=== PATIENT | female | born 1930 | race Caucasian/White ===

== ENCOUNTER → 2016-10-27 | Outpatient (CLI) | payer MEDICARE, OTHER ==
--- NOTE | 2016-10-28 08:00 | US ---
EXAMINATION TYPE: US carotid duplex BILAT DATE OF EXAM: 10/27/2016 4:47 PM COMPARISON: NONE CLINICAL HISTORY: US. Bruit on left EXAM MEASUREMENTS: RIGHT: Peak Systolic Velocity (PSV) cm/sec ----- Right CCA: 128.6 ----- Right ICA: 141.5 ----- Right ECA: 115.7 ICA/CCA ratio: 1.1 RIGHT: End Diastole cm/sec ----- Right CCA: 10.7 ----- Right ICA: 25.2 ----- Right ECA: 0.0 LEFT: Peak Systolic Velocity (PSV) cm/sec ----- Left CCA: 99.5 ----- Left ICA: 115.7 ----- Left ECA: 99.5 ICA/CCA ratio: 1.2 LEFT: End Diastole cm/sec 50-69% by diameter stenosis, proximal right ICA. ----- Left CCA: 12.3 ----- Left ICA: 13.9 ----- Left ECA: 99.5 VERTEBRALS (direction of flow): Right Vertebral: Antegrade Left Vertebral: Retrograde, primarily with some antegrade flow. TECHNOLOGIST IMPRESSION: No significant stenosis seen, mildly elevated velocities throughout right s afshin. Bilateral plaque noted. 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 Criteria for Assigning % of Stenosis / Diameter reduction (Estimation based on the indirect measurements of the internal carotid artery velocities (ICA PSV). 1. Normal (no stenosis)=ICA PSV < 125 cm/s: ratio < 2.0: ICA EDV<40 cm/s. 2. Less than 50% stenosis=ICA PSV < 125 cm/s: ratio < 2.0: ICA EDV<40 cm/s. 3. 50 to 69% stenosis=ICA PSV of 125 to 230 cm/s: ration 2.0 ? 4.0: ICA EDV 40-100 cm/s. 4. Greater than 70% stenosis to near occlusion= ICA PSV > 230 cm/s: ratio > 4.0: ICA EDV > 100 cm/s. 5. Near occlusion= ICA PSV velocities may be low or undetectable: variable ratio and ICA EDV. 6. Total occlusion=unable to detect flow.
== END | disposition home or self-care (01) ==
LOC: RADUSWWP 16:13
PROVIDERS: ATTEND Family Medicine
DX: I65.21 Occlusion and stenosis of right carotid artery (principal); K21.9 Gastro-esophageal reflux disease without esophagitis; K44.9 Diaphragmatic hernia without obstruction or gangrene; E03.9 Hypothyroidism, unspecified; K58.9 Irritable bowel syndrome, unspecified; N31.9 Neuromuscular dysfunction of bladder, unspecified; G47.62 Sleep related leg cramps; N39.498 Other specified urinary incontinence; E55.9 Vitamin D deficiency, unspecified; R39.15 Urgency of urination; R09.89 Other specified symptoms and signs involving the circulatory and respiratory systems
CPT/HCPCS: 93880

== ENCOUNTER 2016-12-19 20:56 | Inpatient (IN) | payer MEDICARE, OTHER ==
[2016-12-19] MEDS ORDERED: SODIUM CHLORIDE 0.9% 500 ML IV STA (21:11)
[2016-12-19] MEDS ORDERED: ACETAMINOPHEN TAB 500 MG TAB PO STA (21:12)
--- NOTE | 2016-12-19 21:17 | ED ---
General Adult HPI - General Chief complaint: Shortness of Breath Stated complaint: Coughing/Weakness Time Seen by Provider: 12/19/16 21:00 Source: patient, family, RN notes reviewed Mode of arrival: ambulatory Limitations: no limitations - History of Present Illness Initial comments: This is an 85-year-old female presents emergency Department complaining of a cough with positive sputum production times one day. Patient states she is also had fever and chills since yesterday. Patient states she has slight difficulty breathing but not significant difficulty breathing. Patient states is a little tenderness in the anterior chest wall from coughing so hard. She denies any abdominal pain patient denies any vomiting or diarrhea. Patient denies any dysuria or hematuria but she does have some urinary frequency. Patient denies headache patient denies numbness or weakness. Patient denies any lightheadedness dizziness or syncopal episode. Patient does complain of generalized fatigue since yesterday. - Related Data Home Medications Medication Instructions Recorded Confirmed Ranitidine HCl [Zantac] 150 mg PO BID PRN 10/12/14 12/19/16 Valsartan [Diovan] 160 mg PO DAILY 10/12/14 12/19/16 Vitamin E (Dl,Tocopheryl Acet) 400 unit PO DAILY 10/12/14 12/19/16 [Vitamin E] Levothyroxine Sodium [Synthroid] 137 mcg PO DAILY 02/11/16 12/19/16 Acetaminophen-Codeine 300-30mg 1 tab PO HS PRN 05/04/16 12/19/16 [Tylenol w/codeine #3] Wheat Dextrin [Benefiber] 1 pack PO DAILY 05/04/16 12/19/16 Cranberry Extract [Cranberry] 1 each PO DAILY 07/16/16 12/19/16 Omeprazole [PriLOSEC] 20 mg PO DAILY 07/16/16 12/19/16 Previous Rx's Medication Instructions Recorded Gabapentin [Neurontin] 100 mg PO HS #0 02/15/16 traMADol HCl [Ultram] 50 mg PO TID #60 tab 02/15/16 diphenhydrAMINE HCL [Benadryl] 25 mg PO HS #1 tab 05/05/16 Allergies Allergy/AdvReac Type Severity Reaction Status Date / Time ibuprofen [From Motrin] Allergy Rash/Hives Verified 07/16/16 09:24 Review of Systems ROS Statement: Those systems with pertinent positive or pertinent negative responses have been documented in the HPI. ROS Other: All systems not noted in ROS Statement are negative. Past Medical History Past Medical History: Cancer, GERD/Reflux, Hypertension, Memory Impairment Additional Past Medical History / Comment(s): FORGETFUL AT TIMES. HIATAL HERNIA ,uterine cancer and skin cancer on nose/cheek. FREQ UTI'S History of Any Multi-Drug Resistant Organisms: None Reported Past Surgical History: Appendectomy, Back Surgery, Bladder Surgery, Cholecystectomy, Hysterectomy, Joint Replacement, Orthopedic Surgery Additional Past Surgical History / Comment(s): CATRACTS REMOVED BILAT, ARM SURGERY, CYST TAKEN OFF OF BACK, THYROID REMVOED, COMPLETE RIGHT HIP REPLACEMENT , COLONOSCOPY Past Anesthesia/Blood Transfusion Reactions: No Reported Reaction Additional Past Anesthesia/Blood Transfusion Reaction / Comment(s): clausterphobia Past Psychological History: No Psychological Hx Reported Smoking Status: Former smoker Past Alcohol Use History: None Reported Additional Past Alcohol Use History / Comment(s): started at age 16 1 pack every 2 days,quit 1978 Past Drug Use History: None Reported - Past Family History Father Family Medical History: Diabetes Mellitus Mother Family Medical History: Diabetes Mellitus, Hypertension Additional Family Medical History / Comment(s): HEART PROBLEMS General Exam - General Exam Comments Initial Comments: GENERAL: Patient is well-developed and well-nourished. Patient is nontoxic and well- hydrated and is in mild distress. ENT: Neck is soft and supple. No significant lymphadenopathy is noted. Oropharynx is clear. Moist mucous membranes. Neck has full range of motion without eliciting any pain. EYES: The sclera were anicteric and conjunctiva were pink and moist. Extraocular movements were intact and pupils were equal round and reactive to light. Eyelids were unremarkable. PULMONARY: Unlabored respirations. Good breath sounds bilaterally. No audible rales rhonchi or wheezing was noted. CARDIOVASCULAR: There is a regular rate and rhythm without any murmurs gallops or rubs. ABDOMEN: Soft and nontender with normal bowel sounds. No palpable organomegaly was noted. There is no palpable pulsatile mass. SKIN: Skin is clear with no lesions or rashes and otherwise unremarkable. NEUROLOGIC: Patient is alert and oriented x3. Cranial nerves II through XII are grossly intact. Motor and sensory are also intact. Normal speech, volume and content. Symmetrical smile. MUSCULOSKELETAL: Normal extremities with adequate strength and full range of motion. No lower extremity swelling or edema. No calf tenderness. LYMPHATICS: No significant lymphadenopathy is noted PSYCHIATRIC Normal psychiatric evaluation. Normal interpersonal interactions appears functionally intact in deals appropriately with others. No signs of depression. No signs of anxiety. Limitations: no limitations Course Vital Signs 12/19/16 12/19/16 21:01 22:38 Temperature 101.1 F H Pulse Rate 75 113 H Respiratory 17 20 Rate Blood Pressure 175/80 199/89 O2 Sat by Pulse 93 L 98 Oximetry Medical Decision Making - Medical Decision Making EKG shows normal sinus rhythm at 92 bpm VA interval is on a 52 QRS is 68 QT interval is 362 QTC is 447 per patient's EKG shows no ST segment elevation or depression or T-wave abdomen is noted. Chest x-ray showed no acute abdomen noted. Patient urinary tract infection start the patient on Levaquin I went back into reevaluate the patient she stated she felt way too weak to go home and she was still coughing. - Lab Data Result diagrams: 12/19/16 23:00 12/19/16 23:00 Lab Results 12/19/16 12/19/16 12/19/16 Range/Units 22:24 22:30 23:00 WBC 17.6 H (3.8-10.6) k/uL RBC 4.50 (3.80-5.40) m/uL Hgb 13.7 (11.4-16.0) gm/dL Hct 41.4 (34.0-46.0) % MCV 92.0 (80.0-100.0) fL MCH 30.5 (25.0-35.0) pg MCHC 33.1 (31.0-37.0) g/dL RDW 13.5 (11.5-15.5) % Plt Count 189 (150-450) k/uL Neutrophils % 92 % Lymphocytes % 2 % Monocytes % 4 % Eosinophils % 0 % Basophils % 0 % Neutrophils # 16.1 H (1.3-7.7) k/uL Lymphocytes # 0.4 L (1.0-4.8) k/uL Monocytes # 0.8 (0-1.0) k/uL Eosinophils # 0.0 (0-0.7) k/uL Basophils # 0.1 (0-0.2) k/uL PT (9.0-12.0) sec INR (<1.1) APTT (22.0-30.0) sec Sodium (137-145) mmol/L Potassium (3.5-5.1) mmol/L Chloride (98-107) mmol/L Carbon Dioxide (22-30) mmol/L Anion Gap mmol/L BUN (7-17) mg/dL Creatinine (0.52-1.04) mg/dL Est GFR (MDRD) Af Amer (>60 ml/min/1.73 sqM) Est GFR (MDRD) Non-Af (>60 ml/min/1.73 sqM) Glucose (74-99) mg/dL Plasma Lactic Acid [place] (0.7-2.0) mmol/L Calcium (8.4-10.2) mg/dL Magnesium (1.6-2.3) mg/dL Total Bilirubin (0.2-1.3) mg/dL AST (14-36) U/L ALT (9-52) U/L Alkaline Phosphatase (38-126) U/L Total Creatine Kinase (30-135) U/L CK-MB (CK-2) (0.0-2.4) ng/mL CK-MB (CK-2) Rel Index Troponin I (0.000-0.034) ng/mL Total Protein (6.3-8.2) g/dL Albumin (3.5-5.0) g/dL Urine Color Yellow Urine Appearance Turbid H (Clear) Urine pH 6.5 (5.0-8.0) Ur Specific [place] 1.015 (1.001-1.035) Urine Protein 2+ H (Negative) Urine Glucose (UA) Negative (Negative) Urine Ketones 1+ H (Negative) Urine Blood Moderate H (Negative) Urine Nitrate Positive H (Negative) Urine Bilirubin Negative (Negative) Urine Urobilinogen <2.0 (<2.0) mg/dL Ur Leukocyte Esterase Large H (Negative) Urine RBC >182 H (0-5) /hpf Urine WBC >182 H (0-5) /hpf Ur Squamous Epith Cells 5 H (0-4) /hpf Urine Bacteria Many H (None) /hpf Urine Mucus Rare H (None) /hpf Influenza Type A RNA Not Detected (Not Detectd) Influenza Type B (PCR) Not Detected (Not Detectd) 12/19/16 12/19/16 12/19/16 Range/Units 23:00 23:00 23:00 WBC (3.8-10.6) k/uL RBC (3.80-5.40) m/uL Hgb (11.4-16.0) gm/dL Hct (34.0-46.0) % MCV (80.0-100.0) fL MCH (25.0-35.0) pg MCHC (31.0-37.0) g/dL RDW (11.5-15.5) % Plt Count (150-450) k/uL Neutrophils % % Lymphocytes % % Monocytes % % Eosinophils % % Basophils % % Neutrophils # (1.3-7.7) k/uL Lymphocytes # (1.0-4.8) k/uL Monocytes # (0-1.0) k/uL Eosinophils # (0-0.7) k/uL Basophils # (0-0.2) k/uL PT 10.3 (9.0-12.0) sec INR 1.0 (<1.1) APTT 21.2 L (22.0-30.0) sec Sodium 139 (137-145) mmol/L Potassium 4.1 (3.5-5.1) mmol/L Chloride 104 (98-107) mmol/L Carbon Dioxide 26 (22-30) mmol/L Anion Gap 9 mmol/L BUN 15 (7-17) mg/dL Creatinine 0.84 (0.52-1.04) mg/dL Est GFR (MDRD) Af Amer >60 (>60 ml/min/1.73 sqM) Est GFR (MDRD) Non-Af >60 (>60 ml/min/1.73 sqM) Glucose 163 H (74-99) mg/dL Plasma Lactic Acid [place]ne (0.7-2.0) mmol/L Calcium 8.6 (8.4-10.2) mg/dL Magnesium 1.7 (1.6-2.3) mg/dL Total Bilirubin 1.5 H (0.2-1.3) mg/dL AST 34 (14-36) U/L ALT 33 (9-52) U/L Alkaline Phosphatase 81 (38-126) U/L Total Creatine Kinase 31 (30-135) U/L CK-MB (CK-2) 0.5 (0.0-2.4) ng/mL CK-MB (CK-2) Rel Index 1.6 Troponin I <0.012 (0.000-0.034) ng/mL Total Protein 6.9 (6.3-8.2) g/dL Albumin 3.7 (3.5-5.0) g/dL Urine Color Urine Appearance (Clear) Urine pH (5.0-8.0) Ur Specific [place] (1.001-1.035) Urine Protein (Negative) Urine Glucose (UA) (Negative) Urine Ketones (Negative) Urine Blood (Negative) Urine Nitrate (Negative) Urine Bilirubin (Negative) Urine Urobilinogen (<2.0) mg/dL Ur Leukocyte Esterase (Negative) Urine RBC (0-5) /hpf Urine WBC (0-5) /hpf Ur Squamous Epith Cells (0-4) /hpf Urine Bacteria (None) /hpf Urine Mucus (None) /hpf Influenza Type A RNA (Not Detectd) Influenza Type B (PCR) (Not Detectd) 12/19/16 Range/Units 23:00 WBC (3.8-10.6) k/uL RBC (3.80-5.40) m/uL Hgb (11.4-16.0) gm/dL Hct (34.0-46.0) % MCV (80.0-100.0) fL MCH (25.0-35.0) pg MCHC (31.0-37.0) g/dL RDW (11.5-15.5) % Plt Count (150-450) k/uL Neutrophils % % Lymphocytes % % Monocytes % % Eosinophils % % Basophils % % Neutrophils # (1.3-7.7) k/uL Lymphocytes # (1.0-4.8) k/uL Monocytes # (0-1.0) k/uL Eosinophils # (0-0.7) k/uL Basophils # (0-0.2) k/uL PT (9.0-12.0) sec INR (<1.1) APTT (22.0-30.0) sec Sodium (137-145) mmol/L Potassium (3.5-5.1) mmol/L Chloride (98-107) mmol/L Carbon Dioxide (22-30) mmol/L Anion Gap mmol/L BUN (7-17) mg/dL Creatinine (0.52-1.04) mg/dL Est GFR (MDRD) Af Amer (>60 ml/min/1.73 sqM) Est GFR (MDRD) Non-Af (>60 ml/min/1.73 sqM) Glucose (74-99) mg/dL Plasma Lactic Acid Bl[place]ne 0.9 (0.7-2.0) mmol/L Calcium (8.4-10.2) mg/dL Magnesium (1.6-2.3) mg/dL Total Bilirubin (0.2-1.3) mg/dL AST (14-36) U/L ALT (9-52) U/L Alkaline Phosphatase (38-126) U/L Total Creatine Kinase (30-135) U/L CK-MB (CK-2) (0.0-2.4) ng/mL CK-MB (CK-2) Rel Index Troponin I (0.000-0.034) ng/mL Total Protein (6.3-8.2) g/dL Albumin (3.5-5.0) g/dL Urine Color Urine Appearance (Clear) Urine pH (5.0-8.0) Ur Specific [place] (1.001-1.035) Urine Protein (Negative) Urine Glucose (UA) (Negative) Urine Ketones (Negative) Urine Blood (Negative) Urine Nitrate (Negative) Urine Bilirubin (Negative) Urine Urobilinogen (<2.0) mg/dL Ur Leukocyte Esterase (Negative) Urine RBC (0-5) /hpf Urine WBC (0-5) /hpf Ur Squamous Epith Cells (0-4) /hpf Urine Bacteria (None) /hpf Urine Mucus (None) /hpf Influenza Type A RNA (Not Detectd) Influenza Type B (PCR) (Not Detectd) Disposition Clinical Impression: Urinary tract infection, Dyspnea, Weakness Disposition: ADMITTED IP TO THIS HOSP Referrals: Sri Sloan MD [Primary Care Provider] - 1-2 days Time of Disposition: 00:00
[2016-12-19 23:09] LABS: Appearance,Urine Turbid (Clear); Bacteria,Urine Many /hpf; Bilirubin,Urine Negative (Negative); Glucose,Urine (UA) Negative (Negative); Ketones,Urine 1+ (Negative); Leukocyte Esterase,Urine Large (Negative); Mucus,Urine Rare /hpf; Nitrite,Urine Positive (Negative); PH, Urine 6.5 (5.0-8.0); Particle Count 66276; Protein,Urine 2+ (Negative); RBC,Urine >182 /hpf (0-5); Specific Gravity,Urine 1.015 (1.001-1.035); Squamous Epithelial Cell,Urine 5 /hpf (0-4); UA Billing (MACRO vs. MICRO) MICRO; Urobilinogen,Urine <2.0 mg/dL (<2.0); WBC,Urine >182 /hpf (0-5)
[2016-12-19 23:15] LABS: Basophils # (A) 0.1 k/uL (0-0.2); Basophils % (A) 0 %; CH 30.8; CHCM 33.7; Eosinophils % (A) 0 %; HCT 41.4 % (34.0-46.0); HDW 2.39; HGB 13.7 gm/dL (11.4-16.0); Luc # (Auto) 0.21; Luc % (Auto) 1; Lymphocytes # (A) 0.4 k/uL (1.0-4.8); Lymphocytes % (A) 2 %; MCH 30.5 pg (25.0-35.0); MCHC 33.1 g/dL (31.0-37.0); Monocytes # (A) 0.8 k/uL (0-1.0); Monocytes % (A) 4 %; Neutrophils # (A) 16.1 k/uL (1.3-7.7); Neutrophils % (A) 92 %; RDW 13.5 % (11.5-15.5); WBC 17.6 k/uL (3.8-10.6); WBC (Perox) 17.81
[2016-12-19 23:25] LABS: ALT 33 U/L (9-52); AST 34 U/L (14-36); Alkaline Phosphatase 81 U/L (38-126); Anion Gap 9 mmol/L; Blood Urea Nitrogen 15 mg/dL (7-17); Calcium 8.6 mg/dL (8.4-10.2); Carbon Dioxide 26 mmol/L (22-30); Chloride 104 mmol/L (98-107); Glucose 163 mg/dL (74-99); Magnesium 1.7 mg/dL (1.6-2.3); Non-African American GFR(MDRD) >60 (>60 ml/min/1.73 sqM); Potassium 4.1 mmol/L (3.5-5.1); Sodium 139 mmol/L (137-145); Total Bilirubin 1.5 mg/dL (0.2-1.3); Total Protein 6.9 g/dL (6.3-8.2)
[2016-12-19 23:32] LABS: Prothrombin Time 10.3 sec (9.0-12.0)
[2016-12-19 23:39] LABS: Creatine Kinase 31 U/L (30-135)
--- NOTE | 2016-12-19 23:46 | XR ---
EXAM: XR Chest, 2 Views. CLINICAL HISTORY: Reason: difficulty breathing TECHNIQUE: Frontal and lateral views of the chest. COMPARISON: 02/13/16. FINDINGS: Lungs: No consolidation. Emphysematous changes. Pleural space: Unremarkable. No pneumothorax. Heart: Stable cardiomediastinal silhouette. Mediastinum: See above. Bones/joints: Stable. Right humeral postsurgical changes noted. IMPRESSION: No evidence of acute cardiopulmonary disease.
[2016-12-19] MEDS ORDERED: LEVOFLOXACIN 750MG-D5W PMX 750 MG in DEXTROSE/WATER 1 150ML.BAG IVPB STA (23:50)
[2016-12-19 23:52] LABS: Creatine Kinase MB 0.5 ng/mL (0.0-2.4); Troponin I <0.012 ng/mL (0.000-0.034)
[2016-12-19 23:57] LABS: Partial Thromboplastin Time 21.2 sec (22.0-30.0)
[2016-12-20] MEDS ORDERED: SODIUM CHLORIDE 0.9% 1,000 ML IV ONE
[2016-12-20] MEDS ORDERED: ACETAMINOPHEN TAB 325 MG TAB PO PRN ×2 (00:57→09:15)
[2016-12-20 01:47] VITALS: BMI 29.0
[2016-12-20] MEDS: SODIUM CHLORIDE 0.9% 1,000 ML IV SCH ×2 (07:49→15:56)
[2016-12-20] MEDS: VALSARTAN 160 MG TAB PO SCH (07:55)
[2016-12-20] MEDS ORDERED: traMADol 50 MG TAB PO SCH (09:00)
[2016-12-20] MEDS ORDERED: traMADol 50 MG TAB PO PRN (09:00)
[2016-12-20] MEDS ORDERED: Acetaminophen-Codeine 300-30mg TAB PO PRN (09:19)
[2016-12-20] MEDS ORDERED: FAMOTIDINE 20 MG TAB PO PRN (09:19)
--- NOTE | 2016-12-20 09:37 | P.HPIM ---
History of Present Illness H&P Date: 12/20/16 Chief Complaint: Shortness of breath 85-year-old female presented on the day of admission to the emergency room with a chief complaint of developing frequent cough coughing up yellowish colored secretions with shortness of breath with fever chills. Patient stated the symptoms have been ongoing for the past several days. stated that she is coughing so frequently that it caused chest tenderness from the frequent cough. Patient denied any nausea vomiting. Denied any burning on urination or hematuria. Patient does state that she has chronic urinary incontinence. Patient states that she has been feeling generalized fatigue over the past several days. she lives alone is fairly active. But over the last several days has felt decreased endurance and inability to participate in ADLs. came into the emergency room was noted to have a fever temp was 101.1 blood pressure was elevated 199/89 with a white count of 17.6. Patient's urine was positive to suggest a UTI patient was started in the emergency room on IV Levaquin. The chest x-ray obtained in the emergency room showed no acute process. states that she has not had any recent hospitalization or recent illness . Patient is noted to have a frequent harsh productive cough coughing up yellowish secretions with audible bilateral wheezing noted the influenza A and B was not detected Reviewing computerized record indicates that in June 2016 the patient did undergo an EGD by Dr. Hercules. Patient was being evaluated for intermittent dysphagia to solids ongoing for the past 2 years. The EGD report indicated a small hiatal hernia with mild cricopharyngeal dysfunction with no evidence of zenker diverticulum Review of Systems Essentially unremarkable except as mentioned in the present illness Past Medical History Past Medical History: Cancer, GERD/Reflux, Hypertension, Memory Impairment Additional Past Medical History / Comment(s): FORGETFUL AT TIMES. HIATAL HERNIA ,uterine cancer and skin cancer on nose/cheek. FREQ UTI'S History of Any Multi-Drug Resistant Organisms: None Reported Past Surgical History: Appendectomy, Back Surgery, Bladder Surgery, Cholecystectomy, Hysterectomy, Joint Replacement, Orthopedic Surgery Additional Past Surgical History / Comment(s): CATRACTS REMOVED BILAT, ARM SURGERY, CYST TAKEN OFF OF BACK, THYROID REMVOED, COMPLETE RIGHT HIP REPLACEMENT , COLONOSCOPY Past Anesthesia/Blood Transfusion Reactions: No Reported Reaction Additional Past Anesthesia/Blood Transfusion Reaction / Comment(s): clausterphobia Past Psychological History: No Psychological Hx Reported Smoking Status: Former smoker Past Alcohol Use History: None Reported Additional Past Alcohol Use History / Comment(s): started at age 16 1 pack every 2 days,quit 1978 Past Drug Use History: None Reported - Past Family History Father Family Medical History: Diabetes Mellitus Mother Family Medical History: Diabetes Mellitus, Hypertension Additional Family Medical History / Comment(s): HEART PROBLEMS Medications and Allergies Home Medications Medication Instructions Recorded Confirmed Type Ranitidine HCl [Zantac] 150 mg PO BID PRN 10/12/14 12/19/16 History Valsartan [Diovan] 160 mg PO DAILY 10/12/14 12/19/16 History Vitamin E (Dl,Tocopheryl Acet) 400 unit PO DAILY 10/12/14 12/19/16 History [Vitamin E] Levothyroxine Sodium [Synthroid] 137 mcg PO DAILY 02/11/16 12/19/16 History Acetaminophen-Codeine 300-30mg 1 tab PO HS PRN 05/04/16 12/19/16 History [Tylenol w/codeine #3] Wheat Dextrin [Benefiber] 1 pack PO DAILY 05/04/16 12/19/16 History Cranberry Extract [Cranberry] 1 each PO DAILY 07/16/16 12/19/16 History Omeprazole [PriLOSEC] 20 mg PO DAILY 07/16/16 12/19/16 History Allergies Allergy/AdvReac Type Severity Reaction Status Date / Time ibuprofen [From Motrin] Allergy Rash/Hives Verified 07/16/16 09:24 Physical Exam Vitals: Vital Signs Temp Pulse Pulse Resp BP BP Pulse Ox 12/20/16 07:31 92 18 12/20/16 07:00 99.2 F 80 16 145/93 99 12/20/16 01:54 160/70 12/20/16 01:39 98 F 92 18 172/74 97 12/20/16 00:14 100.8 F H 92 18 155/70 96 Intake and Output 12/19/16 12/20/16 12/20/16 22:59 06:59 14:59 Other: Voiding Method Toilet Toilet Diaper Diaper Incontinent Incontinent # Voids 1 Weight 74.389 kg GENERAL APPEARANCE: 85-year-old female patient is alert, oriented, in no acute distress. Sitting up on the edge of the bed a frequent productive cough coughing up yellowish secretions audibly wheezing VITAL SIGNS: Reviewed HEENT: Head is normocephalic and atraumatic. Pupils are equal and reactive. The nares are patent. Oropharynx is clear without lesions. NECK: Supple without lymphadenopathy. Traches midline. HEART: S1, S2. Regular rate and rhythm. No murmur noted denying chest pain LUNGS: Posterior diminished at bases with coarse rhonchi throughout with bilateral wheezing noted a frequent cough noted sats on 2 L documented 99% ABDOMEN: Soft, nontender, nondistended with good bowel sounds. No peritoneal signs. No palpable organomegaly or masses. Incontinent a urine no stool EXTREMITIES: Normal skin color and turgor. No cyanosis, rash, ulceration, clubbing or edema. Radial pedal pulses are 2/4 bilaterally. NEUROLOGICAL: No focal deficits. Strength and sensation are grossly intact. Results CBC & Chem 7: 12/19/16 23:00 12/19/16 23:00 Thrombosis Risk Factor Assmnt - Choose All That Apply Each Risk Factor Represents 3 Points: Positive Factor V Leiden Thrombosis Risk Factor Assessment Total Risk Factor Score: 3 Thrombosis Risk Factor Assessment Level: Moderate Risk Assessment and Plan Plan: Impression Present on admission shortness of breath frequent cough febrile with leukocytosis likely due to upper respiratory infection Present on admission UTI History of intermittent dysphagia with an EGD done in June 2016 showing mild cricopharyngeal dysfunction with small hiatal hernia History of esophageal reflux disease History of frequent UTIs Chronic urinary incontinence Essential Hypertension Remote history of nicotine dependency Plan Obtain sputum sent for culture and sensitivity Obtain urine sent for culture and sensitivity Resume home meds as appropriate Start respiratory treatments as ordered Aspiration precautions Repeat labs in the morning Continue IV Levaquin as ordered DVT and GI prophylaxis Further recommendations pending pulmonary consultation Swallow eval in the morning rule out dysphagia The above dictated assessment and findings were discussed with dr negron . Impression and the plan of care have been dictated as directed. Steffanie Aviles nurse practitioner acting as a scribe for dr negron
[2016-12-20 09:46] LABS: Appearance,Urine Cloudy (Clear); Bilirubin,Urine Negative (Negative); Glucose,Urine (UA) Negative (Negative); Ketones,Urine Negative (Negative); Leukocyte Esterase,Urine Large (Negative); Nitrite,Urine Negative (Negative); PH, Urine 6.5 (5.0-8.0); Particle Count 2674; Protein,Urine 1+ (Negative); RBC,Urine 8 /hpf (0-5); Specific Gravity,Urine 1.007 (1.001-1.035); Squamous Epithelial Cell,Urine 1 /hpf (0-4); UA Billing (MACRO vs. MICRO) MICRO; Urobilinogen,Urine <2.0 mg/dL (<2.0); WBC,Urine >182 /hpf (0-5)
[2016-12-20] MEDS: IPRATROPIUM-ALBUTEROL 3 ML NEB INHALATION SCH ×5 (11:43→22:26)
[2016-12-20] MEDS: methylPREDNISolone SOD SUCCI 40 MG/ML 1 ML VIAL IV SCH ×2 (17:28→23:15)
[2016-12-20 20:18] LABS: Glucose,Whole Blood 243 mg/dL (75-99)
[2016-12-20] MEDS: GABAPENTIN 100 MG CAP PO SCH (21:29)
[2016-12-20] MEDS: BUDESONIDE 0.25 MG/2 ML NEBU INHALATION SCH (21:30)
[2016-12-20] MEDS: INSULIN LISPRO (humaLOG) 300 UNIT/3 ML VIAL SQ SCH (21:31)
[2016-12-20] MEDS: diphenhydrAMINE 25 MG CAP PO SCH (21:31)
[2016-12-20] MEDS ORDERED: hydrALAZINE HCL 20 MG/ML 1 ML VIAL IVP PRN (21:57)
--- NOTE | 2016-12-20 22:11 | P.CNPUL ---
History of Present Illness Consult date: 12/20/16 Reason for consult: dyspnea History of present illness: This is a pleasant 85-year-old female patient, no history of smoking and denies having any previous history of chronic lung disorder, presented to the hospital because of increased cough, chest congestion, shortness of breath and increased wheezing. The patient was having some outpatient fever or chills in addition. Apparently her symptoms of been going on for several days and the patient developed some's chest wall soreness and tenderness due to persistent coughing. No change in mental status. No nausea. No vomiting. No abdominal pain. Denied having any dysuria fakes urgency. Chest x-ray showed no acute pulmonary infiltrates or pneumonias. Urine analysis was abnormal and consistent with an underlying urine checked infection. The patient was started on broad-spectrum antibiotics including Levaquin. Influenza screen including influenza A and B were negative. No other complaints otherwise for now. Review of Systems Further review of system was done and the positive findings are almost above history of present illness Past Medical History Past Medical History: Cancer, GERD/Reflux, Hypertension, Memory Impairment Additional Past Medical History / Comment(s): Uterine cancer, skin cancer, hypertension, dementia with memory impairment, hiatal hernia, hypertension, frequent urine checked infections, GERD, cataracts, History of Any Multi-Drug Resistant Organisms: None Reported Past Surgical History: Appendectomy, Back Surgery, Bladder Surgery, Cholecystectomy, Hysterectomy, Joint Replacement, Orthopedic Surgery Additional Past Surgical History / Comment(s): Bilateral cataract removal, resection of a cyst from the back, thyroidectomy, right hip arthroplasty, colonoscopy, hysterectomy, cholecystectomy, bladder suspension surgery, back surgery, Past Anesthesia/Blood Transfusion Reactions: No Reported Reaction Additional Past Anesthesia/Blood Transfusion Reaction / Comment(s): clausterphobia Past Psychological History: No Psychological Hx Reported Smoking Status: Former smoker Past Alcohol Use History: None Reported Additional Past Alcohol Use History / Comment(s): started at age 16 1 pack every 2 days,quit 1978 Past Drug Use History: None Reported - Past Family History Father Family Medical History: Diabetes Mellitus Mother Family Medical History: Diabetes Mellitus, Hypertension Additional Family Medical History / Comment(s): HEART PROBLEMS Medications and Allergies Home Medications Medication Instructions Recorded Confirmed Type Ranitidine HCl [Zantac] 150 mg PO BID PRN 10/12/14 12/20/16 History Valsartan [Diovan] 160 mg PO DAILY 10/12/14 12/20/16 History Wheat Dextrin [Benefiber] 1 pack PO DAILY 05/04/16 12/20/16 History Cranberry Extract [Cranberry] 1 tab PO DAILY 07/16/16 12/20/16 History Cholecalciferol [Vitamin D3] 2,000 unit PO DAILY 12/20/16 12/20/16 History Gabapentin [Neurontin] 300 mg PO DAILY 12/20/16 12/20/16 History Levothyroxine Sodium [Synthroid] 150 mcg PO DAILY 12/20/16 12/20/16 History Methocarbamol [Robaxin] 500 mg PO BID 12/20/16 12/20/16 History Omeprazole 40 mg PO DAILY 12/20/16 12/20/16 History Allergies Allergy/AdvReac Type Severity Reaction Status Date / Time ibuprofen [From Motrin] Allergy Rash/Hives Verified 12/20/16 14:03 Physical Exam Vitals: Vital Signs Temp Pulse Pulse Resp BP BP Pulse Ox 12/20/16 21:46 82 12/20/16 21:31 82 12/20/16 16:45 88 12/20/16 16:31 88 12/20/16 16:00 92 18 12/20/16 15:00 98.5 F 77 20 158/72 99 12/20/16 11:55 92 12/20/16 11:43 88 12/20/16 11:01 99.1 F 12/20/16 07:31 92 18 12/20/16 07:00 99.2 F 80 16 145/93 99 12/20/16 01:54 160/70 12/20/16 01:39 98 F 92 18 172/74 97 12/20/16 00:14 100.8 F H 92 18 155/70 96 Intake and Output 12/20/16 12/20/16 12/20/16 06:59 14:59 22:59 Intake Total 360 Output Total 50 Balance 310 Intake: Oral 360 Output: Post Void Residual 50 Other: Voiding Method Toilet Toilet Toilet Diaper Diaper Diaper Incontinent Incontinent Incontinent # Voids 1 7 Weight 74.389 kg Head exam was generally normal. There was no scleral icterus or corneal arcus. Mucous membranes were moist.Neck was supple and without jugular venous distension, thyromegaly, or carotid bruits. Carotids were easily palpable bilaterally. There was no adenopathy. Lung sounds are diminished and there is diffuse extremity wheezes throughout the lung lackey bilaterally.Cardiac exam revealed the PMI to be normally situated and sized. The rhythm was regular and no extrasystoles were noted during several minutes of auscultation. The first and second heart sounds were normal and physiologic splitting of the second heart sound was noted. There were no murmurs, rubs, clicks, or gallops.Abdominal exam revealed normal bowel sounds. The abdomen was soft, non- tender, and without masses, organomegaly, or appreciable enlargement of the abdominal aorta.Examination of the extremities revealed easily palpable radial, femoral and pedal pulses. There was no cyanosis, clubbing or edema. Results - Laboratory Findings CBC and BMP: 12/19/16 23:00 12/19/16 23:00 PT/INR, D-dimer PT 10.3 sec (9.0-12.0) 12/19/16 23:00 INR 1.0 (<1.1) 12/19/16 23:00 Abnormal lab findings: Abnormal Labs 12/20/16 12/20/16 09:30 20:14 POC Glucose (mg/dL) 243 H Urine Appearance Cloudy H Urine Protein 1+ H Urine Blood Small H Ur Leukocyte Esterase Large H Urine RBC 8 H Urine WBC >182 H - Diagnostic Findings Chest x-ray: image reviewed Assessment and Plan Plan: Impression 1 acute bronchitis with secondary shortness of breath, bronchospasm and wheeze, chest x-ray remains free of any pulmonary infiltrates 2 acute leukocytosis 3 acute urinary tract infection 4 recurrent UTIs 5 intermittent dysphagia with a previous EGD showing some mild cricopharyngeal dysfunction 6 hiatal hernia small 7 GERD 8 hypothyroidism currently on thyroid hormone replacement 9 hypertension 10 chronic urinary incontinence with frequent UTIs 11 hypertension 12 dementia with some memory impairment 13. Uterine cancer with a previous hysterectomy. 14 skin cancer resected. Plan Continue DuoNeb nebulized treatments around the clock. Add IV Solu Medrol at a lower dose of 40 mg IV push every 6 hours. Cover the patient empirically with Levaquin 750 g every 24 hours. Obtain sputum Gram stain and culture. Obtain urine cultures. Monitor the progress and make further adjustments over the next 24 hours. The patient has checked negative for influenza A and B. The chest x-ray shows no evidence of any acute cardio pulmonary processes would be worthwhile to repeat chest x-ray the patient continues to have difficulty breathing and does not show any signs of recovery within the next few days.
[2016-12-20] MEDS ORDERED: IPRATROPIUM-ALBUTEROL 3 ML NEB INHALATION PRN (22:26)
[2016-12-20] MEDS ORDERED: LEVOFLOXACIN 750MG-D5W PMX 750 MG in DEXTROSE/WATER 1 150ML.BAG IVPB SCH (23:00)
[2016-12-21] MEDS: methylPREDNISolone SOD SUCCI 40 MG/ML 1 ML VIAL IV SCH ×2 (05:47→11:57)
[2016-12-21] MEDS: LEVOTHYROXINE 137 MCG TAB PO SCH (05:49)
[2016-12-21 08:03] LABS: Basophils % (A) 0 %; CH 30.7; CHCM 32.9; Eosinophils % (A) 0 %; HCT 36.7 % (34.0-46.0); HDW 2.36; HGB 11.9 gm/dL (11.4-16.0); Luc # (Auto) 0.04; Luc % (Auto) 1; Lymphocytes # (A) 0.7 k/uL (1.0-4.8); Lymphocytes % (A) 9 %; MCH 30.3 pg (25.0-35.0); MCHC 32.4 g/dL (31.0-37.0); MCV 93.6 fL (80.0-100.0); Mean Platelet Volume 6.2; Monocytes # (A) 0.2 k/uL (0-1.0); Monocytes % (A) 2 %; Neutrophils # (A) 6.8 k/uL (1.3-7.7); Neutrophils % (A) 89 %; RBC 3.92 m/uL (3.80-5.40); RDW 13.7 % (11.5-15.5); WBC 7.7 k/uL (3.8-10.6); WBC (Perox) 8.63
[2016-12-21 08:05] LABS: Glucose,Whole Blood 138 mg/dL (75-99)
[2016-12-21] MEDS: CALCIUM POLYCARBOPHIL 625 MG TAB PO SCH (08:06)
[2016-12-21] MEDS: PANTOPRAZOLE 40 MG TABLET PO SCH (08:06)
[2016-12-21] MEDS: INSULIN LISPRO (humaLOG) 300 UNIT/3 ML VIAL SQ SCH ×4 (08:06→21:18)
[2016-12-21] MEDS: VALSARTAN 160 MG TAB PO SCH (08:07)
[2016-12-21 08:28] LABS: ALT 32 U/L (9-52); AST 23 U/L (14-36); Alkaline Phosphatase 69 U/L (38-126); Anion Gap 10 mmol/L; Blood Urea Nitrogen 14 mg/dL (7-17); Calcium 8.6 mg/dL (8.4-10.2); Carbon Dioxide 22 mmol/L (22-30); Chloride 109 mmol/L (98-107); Glucose 153 mg/dL (74-99); Non-African American GFR(MDRD) 59 (>60 ml/min/1.73 sqM); Potassium 4.1 mmol/L (3.5-5.1); Sodium 141 mmol/L (137-145); Total Bilirubin 0.5 mg/dL (0.2-1.3); Total Protein 6.1 g/dL (6.3-8.2)
[2016-12-21] MEDS ORDERED: CRANBERRY EXTRACT PO SCH (09:00)
[2016-12-21] MEDS: IPRATROPIUM-ALBUTEROL 3 ML NEB INHALATION SCH ×4 (09:24→19:09)
[2016-12-21] MEDS: BUDESONIDE 0.25 MG/2 ML NEBU INHALATION SCH ×2 (09:24→19:08)
[2016-12-21 10:21] LABS: Hemoglobin A1C 5.6 % (4.2-6.1)
[2016-12-21] MEDS: SODIUM CHLORIDE 0.9% 1,000 ML IV SCH (11:31)
[2016-12-21] MEDS: VITAMIN E (DL,TOCOPHERYL ACET) 400 UNIT CAP PO SCH (11:57)
--- NOTE | 2016-12-21 11:58 | P.PN ---
Subjective Patient is doing fairly well today. Her shortness of breath is improving. No significant lower extremity edema. Objective - Vital Signs Vital signs: Vital Signs Temp 98.9 F 12/21/16 07:00 Pulse 88 12/21/16 09:35 Resp 17 12/21/16 07:00 BP 158/70 12/21/16 09:10 Pulse Ox 96 12/21/16 07:00 Intake & Output 12/20/16 12/21/16 12/21/16 18:59 06:59 18:59 Intake Total 360 Output Total 50 Balance 310 Intake: Oral 360 Output: Post Void Residual 50 Other: Voiding Method Toilet Toilet Toilet Diaper Diaper Diaper Incontinent Incontinent Incontinent # Voids 7 2 - Exam General: The patient is awake and alert, in no distress Eye: there is normal conjunctiva bilaterally. Neck: The neck is supple, there is no JVD. Cardiovascular: Normal S1-S2, no S3-S4, no murmurs. Respiratory: Lungs clear to auscultation bilaterally Gastrointestinal: Abdomen is soft, nontender Musculoskeletal: There is no pedal edema. Neurological:. Speech is normal. Skin: Skin is warm and dry - Labs CBC & Chem 7: 12/21/16 07:24 12/21/16 07:24 Labs: Abnormal Lab Results - Last 24 Hours (Table) 12/20/16 12/21/16 12/21/16 Range/Units 20:14 07:24 07:24 Lymphocytes # 0.7 L (1.0-4.8) k/uL Chloride 109 H (98-107) mmol/L Glucose 153 H (74-99) mg/dL POC Glucose (mg/dL) 243 H (75-99) mg/dL Total Protein 6.1 L (6.3-8.2) g/dL Albumin 3.3 L (3.5-5.0) g/dL 12/21/16 Range/Units 07:51 Lymphocytes # (1.0-4.8) k/uL Chloride (98-107) mmol/L Glucose (74-99) mg/dL POC Glucose (mg/dL) 138 H (75-99) mg/dL Total Protein (6.3-8.2) g/dL Albumin (3.5-5.0) g/dL Microbiology - Last 24 Hours (Table) 12/20/16 09:30 Urine Culture - Final Urine,Voided 12/20/16 16:45 Gram Stain - Preliminary Sputum Sputum Culture - Preliminary Assessment and Plan Plan: Impression - Acute bacterial bronchitis with no evidence of pneumonia on chest x-ray - Present on admission shortness of breath frequent cough febrile with leukocytosis likely due to upper respiratory infection - Present on admission UTI: Covered with IV Levaquin - History of intermittent dysphagia with an EGD done in June 2016 showing mild cricopharyngeal dysfunction with small hiatal hernia - History of esophageal reflux disease - History of frequent UTIs: Awaiting PT/OT evaluation - Chronic urinary incontinence - Essential Hypertension: Blood pressure well-controlled - Remote history of nicotine dependency Plan Awaiting urine and sputum cultures to finalize Aspiration precautions Repeat labs in the morning Continue IV Levaquin as ordered DVT and GI prophylaxis Further recommendations pending pulmonary consultation appreciate
[2016-12-21 12:02] LABS: Glucose,Whole Blood 167 mg/dL (75-99)
[2016-12-21] MEDS: amLODIPine 2.5 MG TAB PO SCH (13:04)
--- NOTE | 2016-12-21 15:40 | P.PN ---
Subjective Principal diagnosis: Acute bronchitis and reactive bronchospasm This is a pleasant 85-year-old female patient, no history of smoking and denies having any previous history of chronic lung disorder, presented to the hospital because of increased cough, chest congestion, shortness of breath and increased wheezing. The patient was having some outpatient fever or chills in addition. Apparently her symptoms of been going on for several days and the patient developed some's chest wall soreness and tenderness due to persistent coughing. No change in mental status. No nausea. No vomiting. No abdominal pain. Denied having any dysuria fakes urgency. Chest x-ray showed no acute pulmonary infiltrates or pneumonias. Urine analysis was abnormal and consistent with an underlying urine checked infection. The patient was started on broad-spectrum antibiotics including Levaquin. Influenza screen including influenza A and B were negative. No other complaints otherwise for now. Patient was seen today on 12/21/2016, feeling better, breathing easier, she has occasional cough and occasional wheezing. Physical examination revealed clear breath sound bilaterally, hence I felt the patient could be discharged home today or possibly in a.m. Labs including CBC and basic metabolic profile are all normal. Objective - Vital Signs Vital signs: Vital Signs Temp 98.9 F 12/21/16 07:00 Pulse 88 12/21/16 09:35 Resp 17 12/21/16 07:00 BP 158/70 12/21/16 09:10 Pulse Ox 96 12/21/16 07:00 Intake & Output 12/20/16 12/21/16 12/21/16 18:59 06:59 18:59 Intake Total 360 375 Output Total 50 Balance 310 375 Intake: IV 375 Sodium Chloride 0.9% 1, 375 000 ml @ 75 mls/hr IV . [id number] [facility] Rx#:[id number] Oral 360 Output: Post Void Residual 50 Other: Voiding Method Toilet Toilet Toilet Diaper Diaper Diaper Incontinent Incontinent Incontinent # Voids 7 2 5 - Exam Physical Exam revealed an 85-year-old in no distress. HEENT:[Neck is supple.] [No neck masses.] [No thyromegaly.] [No JVD.] Chest: [Clear throughout, no crackles, no rhonchi, no wheezes.] Cardiac Exam: [Normal S1 and S2, no S3 gallop, 2/6 systolic murmur throughout the precordium] Abdomen: [Soft, nontender, no megaly, no rebound, no guarding, normal bowel sounds.] Extremities: [No clubbing, no edema, no cyanosis.] Neurological Exam: [No focal neurologic deficit.] - Labs CBC & Chem 7: 12/21/16 07:24 12/21/16 07:24 Labs: Abnormal Lab Results - Last 24 Hours (Table) 12/20/16 12/21/16 12/21/16 Range/Units 20:14 07:24 07:24 Lymphocytes # 0.7 L (1.0-4.8) k/uL Chloride 109 H (98-107) mmol/L Glucose 153 H (74-99) mg/dL POC Glucose (mg/dL) 243 H (75-99) mg/dL Total Protein 6.1 L (6.3-8.2) g/dL Albumin 3.3 L (3.5-5.0) g/dL 12/21/16 12/21/16 Range/Units 07:51 11:47 Lymphocytes # (1.0-4.8) k/uL Chloride (98-107) mmol/L Glucose (74-99) mg/dL POC Glucose (mg/dL) 138 H 167 H (75-99) mg/dL Total Protein (6.3-8.2) g/dL Albumin (3.5-5.0) g/dL Microbiology - Last 24 Hours (Table) 12/20/16 09:30 Urine Culture - Final Urine,Voided 12/20/16 16:45 Gram Stain - Preliminary Sputum Sputum Culture - Preliminary Assessment and Plan Plan: 1 acute bronchitis with secondary shortness of breath, bronchospasm and wheeze, chest x-ray remains free of any pulmonary infiltrates 2 acute leukocytosis 3 acute urinary tract infection 4 recurrent UTIs 5 intermittent dysphagia with a previous EGD showing some mild cricopharyngeal dysfunction 6 hiatal hernia small 7 GERD 8 hypothyroidism currently on thyroid hormone replacement 9 hypertension 10 chronic urinary incontinence with frequent UTIs 11 hypertension 12 dementia with some memory impairment 13. Uterine cancer with a previous hysterectomy. 14 skin cancer resected. Continue present treatment plan, consider switching patient tomorrow to prednisone burst and taper, discharge planning is in progress. Follow-up on outpatient basis. Time with Patient: Less than 30
[2016-12-21 16:43] VITALS: RESP 16
[2016-12-21 17:48] LABS: Glucose,Whole Blood 192 mg/dL (75-99)
[2016-12-21 20:18] LABS: Glucose,Whole Blood 206 mg/dL (75-99)
[2016-12-21] MEDS ORDERED: methylPREDNISolone SOD SUCCI 40 MG/ML 1 ML VIAL IV SCH (21:00)
[2016-12-21] MEDS: GABAPENTIN 100 MG CAP PO SCH (21:18)
[2016-12-21] MEDS: diphenhydrAMINE 25 MG CAP PO SCH (21:22)
[2016-12-22 07:17] LABS: Basophils % (A) 0 %; CH 30.8; CHCM 33.2; Eosinophils % (A) 0 %; HCT 38.1 % (34.0-46.0); HDW 2.38; HGB 12.3 gm/dL (11.4-16.0); Luc # (Auto) 0.26; Luc % (Auto) 2; Lymphocytes # (A) 1.5 k/uL (1.0-4.8); Lymphocytes % (A) 12 %; MCH 29.9 pg (25.0-35.0); MCHC 32.2 g/dL (31.0-37.0); Mean Platelet Volume 6.3; Monocytes # (A) 0.6 k/uL (0-1.0); Monocytes % (A) 5 %; Neutrophils # (A) 10.6 k/uL (1.3-7.7); Neutrophils % (A) 81 %; RDW 13.7 % (11.5-15.5); WBC 13.1 k/uL (3.8-10.6); WBC (Perox) 13.38
[2016-12-22 07:34] LABS: ALT 29 U/L (9-52); AST 25 U/L (14-36); Alkaline Phosphatase 61 U/L (38-126); Anion Gap 9 mmol/L; Blood Urea Nitrogen 21 mg/dL (7-17); Calcium 8.9 mg/dL (8.4-10.2); Carbon Dioxide 25 mmol/L (22-30); Chloride 109 mmol/L (98-107); Glucose 99 mg/dL (74-99); Non-African American GFR(MDRD) 54 (>60 ml/min/1.73 sqM); Potassium 4.1 mmol/L (3.5-5.1); Sodium 143 mmol/L (137-145); Total Bilirubin 0.6 mg/dL (0.2-1.3); Total Protein 6.3 g/dL (6.3-8.2)
[2016-12-22] MEDS: IPRATROPIUM-ALBUTEROL 3 ML NEB INHALATION SCH ×3 (07:48→15:11)
[2016-12-22] MEDS: BUDESONIDE 0.25 MG/2 ML NEBU INHALATION SCH (07:48)
[2016-12-22 07:51] LABS: Glucose,Whole Blood 86 mg/dL (75-99)
[2016-12-22 08:01] VITALS: BP 142/66; TEMP 98.3
[2016-12-22] MEDS ORDERED: methylPREDNISolone 4 MG TAB PO SCH (09:00)
[2016-12-22] MEDS: INSULIN LISPRO (humaLOG) 300 UNIT/3 ML VIAL SQ SCH ×2 (09:13→13:52)
[2016-12-22] MEDS: PANTOPRAZOLE 40 MG TABLET PO SCH (09:13)
[2016-12-22] MEDS: amLODIPine 2.5 MG TAB PO SCH (09:13)
[2016-12-22] MEDS: CALCIUM POLYCARBOPHIL 625 MG TAB PO SCH (09:13)
[2016-12-22] MEDS: LEVOTHYROXINE 137 MCG TAB PO SCH (09:15)
[2016-12-22] MEDS: VALSARTAN 160 MG TAB PO SCH (09:15)
[2016-12-22] MEDS: VITAMIN E (DL,TOCOPHERYL ACET) 400 UNIT CAP PO SCH (11:59)
--- NOTE | 2016-12-22 11:59 | P.DS ---
Providers Date of admission: 12/20/16 00:00 Expected date of discharge: 12/22/16 Attending physician: Dave Mckenna Consults: 12/20/16 10:20 Consult Physician Stat Consulting Provider: Raven Terry Consult Reason/Comments: Shortness of breath wheezing Do you want consulting provider notified?: Yes Primary care physician: Sri Sloan Hospital Course: This is a 85-year-old female with past medical history noted below who presented to the hospital initially with generalized weakness, worsening cough, fevers. Patient was evaluated in the emergency room and was found to have a positive urinalysis. She was started on IV antibiotic and was admitted to the hospital for further evaluation. Chest x-ray showed no evidence of pneumonia. Patient was seen and evaluated by pulmonology and was treated with steroids for reactive airway disease. Patient's clinical condition improved significantly throughout her hospital stay. She will be discharged home in a stable condition. She will finish a short course of steroids and antibiotic. Amlodipine 2.5 mg added to her regimen given uncontrolled hypertension. - Acute bacterial bronchitis with no evidence of pneumonia on chest x-ray - Present on admission shortness of breath frequent cough febrile with leukocytosis likely due to upper respiratory infection - Present on admission UTI: Urine culture showing normal genital aidee - Essential hypertension: Blood pressure not well controlled. Amlodipine 2.5 mg daily added to her regimen. - History of intermittent dysphagia with an EGD done in June 2016 showing mild cricopharyngeal dysfunction with small hiatal hernia - History of esophageal reflux disease - Chronic urinary incontinence - Remote history of nicotine dependency Plan - Discharge Summary New Discharge Prescriptions: Levofloxacin [Levaquin] 250 mg PO DAILY #5 tab amLODIPine [Norvasc] 2.5 mg PO DAILY #30 tab methylPREDNISolone Dose Pack [Medrol Dose Pack] 4 mg PO DIRECTED #21 package Discharge Medication List Valsartan [Diovan] 160 mg PO DAILY 10/12/14 [History] traMADol HCl [Ultram] 50 mg PO TID #60 tab 02/15/16 [Rx] Wheat Dextrin [Benefiber] 1 pack PO DAILY 05/04/16 [History] Cranberry Extract [Cranberry] 1 tab PO DAILY 07/16/16 [History] Cholecalciferol [Vitamin D3] 2,000 unit PO DAILY 12/20/16 [History] Gabapentin [Neurontin] 300 mg PO DAILY 12/20/16 [History] Levothyroxine Sodium [Synthroid] 150 mcg PO DAILY 12/20/16 [History] Omeprazole 40 mg PO DAILY 12/20/16 [History] Gabapentin [Neurontin] 100 mg PO HS cap 12/22/16 [Rx] Levofloxacin [Levaquin] 250 mg PO DAILY #5 tab 12/22/16 [Rx] Levothyroxine Sodium [Synthroid] 137 mcg PO DAILY@0630 tab 12/22/16 [Rx] Vitamin E (Dl,Tocopheryl Acet) [Vitamin E] 400 unit PO DAILY@1200 cap 12/22/16 [Rx] amLODIPine [Norvasc] 2.5 mg PO DAILY #30 tab 12/22/16 [Rx] methylPREDNISolone Dose Pack [Medrol Dose Pack] 4 mg PO DIRECTED #21 package 12/22/16 [Rx] Follow up Appointment(s)/Referral(s): Sri Sloan MD [Primary Care Provider] - 1-2 days Discharge Disposition: HOME WITH HOME HEALTH SERVICES
[2016-12-22 12:10] LABS: Glucose,Whole Blood 86 mg/dL (75-99)
--- NOTE | 2016-12-22 14:42 | P.PN ---
Subjective This is a pleasant 85-year-old female patient, no history of smoking and denies having any previous history of chronic lung disorder, presented to the hospital because of increased cough, chest congestion, shortness of breath and increased wheezing. The patient was having some outpatient fever or chills in addition. Apparently her symptoms of been going on for several days and the patient developed some's chest wall soreness and tenderness due to persistent coughing. No change in mental status. No nausea. No vomiting. No abdominal pain. Denied having any dysuria fakes urgency. Chest x-ray showed no acute pulmonary infiltrates or pneumonias. Urine analysis was abnormal and consistent with an underlying urine checked infection. The patient was started on broad-spectrum antibiotics including Levaquin. Influenza screen including influenza A and B were negative. The patient is seen again today 12/22/2016 in follow-up. She has been treated for acute bronchitis with IV Solu-Medrol, bronchodilators and Levaquin. She is awake and alert in no acute distress. She states her breathing is nearly back to her baseline. She's been up ambulating in the room without significant distress. She is maintaining good O2 saturations in the mid 90s on room air. Afebrile. She is anxious to go home. Objective - Vital Signs Vital signs: Vital Signs Temp 98.3 F 12/22/16 07:00 Pulse 88 12/22/16 11:17 Resp 16 12/22/16 08:00 BP 142/66 12/22/16 07:00 Pulse Ox 94 L 12/22/16 07:00 Intake & Output 12/21/16 12/22/16 12/22/16 18:59 06:59 18:59 Intake Total 375 795 Balance 375 795 Intake: IV 375 375 Sodium Chloride 0.9% 1, 375 375 000 ml @ 75 mls/hr IV . [id number] [facility] Rx#:[id number] Oral 420 Other: Voiding Method Toilet Toilet Toilet Diaper Diaper Diaper Incontinent Incontinent Incontinent # Voids 5 2 - Exam Head exam was generally normal. There was no scleral icterus or corneal arcus. Mucous membranes were moist.Neck was supple and without jugular venous distension, thyromegaly, or carotid bruits. Carotids were easily palpable bilaterally. There was no adenopathy. Lung sounds are diminished and there is diffuse extremity wheezes throughout the lung lackey bilaterally.Cardiac exam revealed the PMI to be normally situated and sized. The rhythm was regular and no extrasystoles were noted during several minutes of auscultation. The first and second heart sounds were normal and physiologic splitting of the second heart sound was noted. There were no murmurs, rubs, clicks, or gallops.Abdominal exam revealed normal bowel sounds. The abdomen was soft, non- tender, and without masses, organomegaly, or appreciable enlargement of the abdominal aorta.Examination of the extremities revealed easily palpable radial, femoral and pedal pulses. There was no cyanosis, clubbing or edema. - Labs CBC & Chem 7: 12/22/16 06:48 12/22/16 06:48 Labs: Abnormal Lab Results - Last 24 Hours (Table) 12/21/16 12/21/16 12/22/16 Range/Units 17:44 20:15 06:48 WBC 13.1 H (3.8-10.6) k/uL Neutrophils # 10.6 H (1.3-7.7) k/uL Chloride (98-107) mmol/L BUN (7-17) mg/dL POC Glucose (mg/dL) 192 H 206 H (75-99) mg/dL Albumin (3.5-5.0) g/dL 12/22/16 Range/Units 06:48 WBC (3.8-10.6) k/uL Neutrophils # (1.3-7.7) k/uL Chloride 109 H (98-107) mmol/L BUN 21 H (7-17) mg/dL POC Glucose (mg/dL) (75-99) mg/dL Albumin 3.4 L (3.5-5.0) g/dL Microbiology - Last 24 Hours (Table) 12/20/16 16:45 Gram Stain - Final Sputum Sputum Culture - Final 12/20/16 09:30 Urine Culture - Final Urine,Voided Assessment and Plan Plan: Impression 1 acute bronchitis with secondary shortness of breath, bronchospasm and wheeze, chest x-ray remains free of any pulmonary infiltrates 2 acute leukocytosis 3 acute urinary tract infection 4 recurrent UTIs 5 intermittent dysphagia with a previous EGD showing some mild cricopharyngeal dysfunction 6 hiatal hernia small 7 GERD 8 hypothyroidism currently on thyroid hormone replacement 9 hypertension 10 chronic urinary incontinence with frequent UTIs 11 hypertension 12 dementia with some memory impairment 13. Uterine cancer with a previous hysterectomy. 14 skin cancer resected. Plan The patient was seen and evaluated by Dr. Mccord. She is cleared for discharge from the pulmonary standpoint. She'll complete her course of antibiotics and prednisone taper along with bronchodilators. She'll follow-up in our office in 1 week's time. She is encouraged to call sooner with any recurrence of symptoms or other questions or concerns.
[2016-12-22 16:18] VITALS: PULSE 70
[2016-12-22] MEDS ORDERED: LEVOFLOXACIN 750 MG TAB PO SCH (18:00)
== END 2016-12-22 16:57 | disposition home health service (06) | DRG 202 ==
LOC: EC 20:56 → 5MS5E 12-20
PROVIDERS: ADMIT Internal Medicine; ATTEND Internal Medicine
DX: J20.8 Acute bronchitis due to other specified organisms (principal); N39.0 Urinary tract infection, site not specified; R13.10 Dysphagia, unspecified; F03.90 Unspecified dementia, unspecified severity, without behavioral disturbance, psychotic disturbance, mood disturbance, and anxiety; J45.909 Unspecified asthma, uncomplicated; R50.9 Fever, unspecified; D72.829 Elevated white blood cell count, unspecified; I10 Essential (primary) hypertension; J06.9 Acute upper respiratory infection, unspecified; R32 Unspecified urinary incontinence; K21.9 Gastro-esophageal reflux disease without esophagitis; R53.1 Weakness; K44.9 Diaphragmatic hernia without obstruction or gangrene; E89.0 Postprocedural hypothyroidism; Z90.49 Acquired absence of other specified parts of digestive tract; Z98.42 Cataract extraction status, left eye; Z98.41 Cataract extraction status, right eye; Z85.828 Personal history of other malignant neoplasm of skin; Z87.440 Personal history of urinary (tract) infections; Z09 Encounter for follow-up examination after completed treatment for conditions other than malignant neoplasm; Z88.6 Allergy status to analgesic agent; Z79.891 Long term (current) use of opiate analgesic; Z79.899 Other long term (current) drug therapy; Z85.42 Personal history of malignant neoplasm of other parts of uterus; Z96.641 Presence of right artificial hip joint; Z87.891 Personal history of nicotine dependence; Z90.710 Acquired absence of both cervix and uterus; Z83.3 Family history of diabetes mellitus; Z82.49 Family history of ischemic heart disease and other diseases of the circulatory system
CPT/HCPCS: 36415; 71020; 80053; 81001; 82550; 82553; 83036; 83605; 83735; 84484; 85025; 85610; 85730; 87040; 87070; 87086; 87205; 87502; 93005; 94640; 96361; 96365; 99285

== ENCOUNTER → 2017-05-03 | Outpatient (CLI) | payer MEDICARE, OTHER ==
--- NOTE | 2017-05-03 21:37 | US ---
EXAMINATION TYPE: US carotid duplex BILAT DATE OF EXAM: 05/03/2017 COMPARISON: Carotid ultrasound October 27, 2016 CLINICAL HISTORY: Carotid Artery Stenosis per order I65.29; Left carotid bruit EXAM MEASUREMENTS: RIGHT: Peak Systolic Velocity (PSV) cm/sec ----- Right CCA: 77.9 ----- Right ICA: 103.0 ----- Right ECA: 85.0 ICA/CCA ratio: 1.3 RIGHT: End Diastole cm/sec ----- Right CCA: 0.0 ----- Right ICA: 16.1 ----- Right ECA: 0.0 LEFT: Peak Systolic Velocity (PSV) cm/sec ----- Left CCA: 70.0 ----- Left ICA: 100.8 ----- Left ECA: 74.4 ICA/CCA ratio: 1.4 LEFT: End Diastole cm/sec ----- Left CCA: 0.0 ----- Left ICA: 19.4 ----- Left ECA: 0.0 VERTEBRALS (direction of flow): Right Vertebral: Antegrade Left Vertebral: to and fro flow noted by color flow and by PW Doppler Moderate intimal wall changes at bilateral carotid bifurcation, but PSV is wnl bilaterally. Abnormal flow direction is demonstrated in left vertebral artery. Grayscale images redemonstrate mild to moderate eccentric plaque distal right common carotid artery i ncluding carotid bulb not significantly changed from prior. Mild/moderate eccentric plaque at left ca rotid bulb is redemonstrated. Velocity measurements and ratios in visualized portion of both internal carotid arteries is within normal limits. There is redemonstration of abnormal flow in left vertebra l artery with alternating forward and reversed flow seen. IMPRESSION: No hemodynamically significant stenosis in either internal carotid artery is felt presen t. Cannot exclude proximal stenosis left subclavian artery causing partial retrograde flow left verte bral artery. Consider CTA or MRA correlation. Criteria for Assigning % of Stenosis / Diameter reduction (Estimation based on the indirect measurements of the internal carotid artery velocities (ICA PSV). 1. Normal (no stenosis)=ICA PSV < 125 cm/s: ratio < 2.0: ICA EDV<40 cm/s. 2. Less than 50% stenosis=ICA PSV < 125 cm/s: ratio < 2.0: ICA EDV<40 cm/s. 3. 50 to 69% stenosis=ICA PSV of 125 to 230 cm/s: ration 2.0 ? 4.0: ICA EDV 40-100 cm/s. 4. Greater than 70% stenosis to near occlusion= ICA PSV > 230 cm/s: ratio > 4.0: ICA EDV > 100 cm/s. 5. Near occlusion= ICA PSV velocities may be low or undetectable: variable ratio and ICA EDV. 6. Total occlusion=unable to detect flow.
== END | disposition home or self-care (01) ==
LOC: RADUSWWP 16:25
PROVIDERS: ATTEND Family Medicine
DX: I65.29 Occlusion and stenosis of unspecified carotid artery (principal)
CPT/HCPCS: 93880

== ENCOUNTER → 2017-05-24 | Outpatient (CLI) | payer MEDICARE ==
--- NOTE | 2017-05-24 18:47 | CT ---
EXAMINATION TYPE: CT brain wo con DATE OF EXAM: 05/24/2017 COMPARISON: NONE HISTORY: Parkinson's disease. CT DLP: 1025.60 mGycm Automated exposure control for dose reduction was used. FINDINGS: There is cerebral cortical atrophy. There is no mass effect nor midline shift. There is no sign of in tracranial hemorrhage. The calvarium is intact. There is mucosal thickening in the right maxillary si nus. IMPRESSION: RIGHT MAXILLARY SINUSITIS. CEREBRAL ATROPHY. NO ACUTE INTRACRANIAL ABNORMALITY.
== END | disposition home or self-care (01) ==
LOC: RADCTMAIN 15:50
PROVIDERS: ATTEND Psychiatry & Neurology Neurology
DX: G31.9 Degenerative disease of nervous system, unspecified (principal)
CPT/HCPCS: 70450

== ENCOUNTER → 2017-05-24 | Outpatient (CLI) | payer MEDICARE ==
[2017-05-24 16:22] LABS: Blood Urea Nitrogen 21 mg/dL (7-17); Non-African American GFR(MDRD) >60 (>60 ml/min/1.73 sqM)
--- NOTE | 2017-05-24 19:11 | CT ---
EXAMINATION TYPE: CT angio neck DATE OF EXAM: 05/24/2017 HISTORY: Abnormal US. Carotid artery syndrome. COMPARISON: NONE CT DLP: 215.70 mGycm. Automated Exposure Control for Dose Reduction was Utilized. TECHNIQUE: CTA scan of the neck is performed with IV Contrast, patient injected with 65 mL of Omnipa que 350, axial images are obtained, coronal and sagittal reformatted images are reviewed. Three-D rec onstructed images are created on an independent workstation and reviewed. FINDINGS: There is normal branching pattern of the great vessels on the aortic arch. There is a short segment o f approximately 80% stenosis of the proximal left subclavian artery. There is arterial flow in the vertebral arteries. Right vertebral artery is much larger than the left . There is arterial flow in the common internal and external carotid arteries. There is patency of the carotid artery bifurcations. I see no evidence of any hemodynamically significant stenosis. There is minimal calcification. There is arterial flow in the vertebrobasilar artery system. There is bilatera l normal appearing distal internal carotid arteries. There is minimal plaque at the carotid artery bi furcations with luminal narrowing of 10-15%. IMPRESSION: Minimal plaque at the carotid artery bifurcations. No evidence of hemodynamically signifi cant stenosis of the carotid arteries. There is a 1.5 cm segment of severe stenosis of the proximal left subclavian artery. 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
== END | disposition home or self-care (01) ==
LOC: RADCTMAIN 15:47
PROVIDERS: ATTEND Family Medicine
DX: I65.23 Occlusion and stenosis of bilateral carotid arteries (principal); I70.8 Atherosclerosis of other arteries
CPT/HCPCS: 82565; 84520; 70498; 36415; Q9967

== ENCOUNTER → 2017-06-21 | Outpatient (CLI) | payer MEDICARE ==
[2017-06-21 08:55] LABS: ALT 28 U/L (9-52); AST 28 U/L (14-36); Cholesterol 156 mg/dL (<200); HDL Cholesterol 63 mg/dL (40-60)
== END | disposition home or self-care (01) ==
LOC: LABWHC1 07:54
PROVIDERS: ATTEND Internal Medicine Cardiovascular Disease
DX: E78.2 Mixed hyperlipidemia (principal)
CPT/HCPCS: 36415; 80061; 84450; 84460

== ENCOUNTER 2017-12-15 20:42 | Observation (INO) | payer MEDICARE, BC ==
[2017-12-15 21:04] LABS: Glucose,Whole Blood 84 mg/dL (75-99)
[2017-12-15 21:19] LABS: Basophils % (A) 1 %; Eosinophils # (A) 0.3 k/uL (0-0.7); Eosinophils % (A) 4 %; HCT 43.5 % (34.0-46.0); HGB 13.3 gm/dL (11.4-16.0); Lymphocytes # (A) 2.7 k/uL (1.0-4.8); Lymphocytes % (A) 32 %; MCH 29.2 pg (25.0-35.0); MCHC 30.6 g/dL (31.0-37.0); MCV 95.4 fL (80.0-100.0); Mean Platelet Volume 6.7; Monocytes # (A) 0.6 k/uL (0-1.0); Monocytes % (A) 7 %; Neutrophils # (A) 4.5 k/uL (1.3-7.7); Neutrophils % (A) 54 %; Platelet Count 251 k/uL (150-450); RBC 4.56 m/uL (3.80-5.40); RDW 12.7 % (11.5-15.5); WBC 8.5 k/uL (3.8-10.6)
[2017-12-15 21:22] LABS: Appearance,Urine Clear (Clear); Bacteria,Urine Many /hpf; Bilirubin,Urine Negative (Negative); Blood,Urine Negative (Negative); Color,Urine Light Yellow; Glucose,Urine (UA) Negative (Negative); Ketones,Urine Negative (Negative); Leukocyte Esterase,Urine Moderate (Negative); PH, Urine 5.5 (5.0-8.0); Protein,Urine Negative (Negative); RBC,Urine 1 /hpf (0-5); Specific Gravity,Urine 1.006 (1.001-1.035); Urobilinogen,Urine <2.0 mg/dL (<2.0); WBC,Urine 52 /hpf (0-5)
[2017-12-15 21:29] LABS: D-Dimer 0.49 mg/L FEU (<0.60)
[2017-12-15 21:33] LABS: ALT 20 U/L (9-52); AST 29 U/L (14-36); Alkaline Phosphatase 94 U/L (38-126); Anion Gap 11 mmol/L; Blood Urea Nitrogen 18 mg/dL (7-17); Calcium 9.4 mg/dL (8.4-10.2); Carbon Dioxide 27 mmol/L (22-30); Chloride 104 mmol/L (98-107); Glucose 90 mg/dL (74-99); Potassium 4.4 mmol/L (3.5-5.1); Sodium 142 mmol/L (137-145); Total Bilirubin 0.7 mg/dL (0.2-1.3)
[2017-12-15 21:35] LABS: INR 0.9 (<1.2); Prothrombin Time 9.5 sec (9.0-12.0)
[2017-12-15] MEDS ORDERED: cefTRIAXone IN SWFI 1,000 MG/10 ML SYRINGE IVP STA (21:41)
[2017-12-15 21:42] LABS: Creatine Kinase 52 U/L (30-135)
[2017-12-15 21:48] LABS: Partial Thromboplastin Time 20.4 sec (22.0-30.0)
--- NOTE | 2017-12-15 21:50 | CT ---
EXAMINATION TYPE: CT brain wo con DATE OF EXAM: 12/15/2017 COMPARISON: 05/24/2017 HISTORY: CHEST PAIN AND LEFT ARM PAIN CT DLP: 1006.[address] of the brain was performed. The ventricles, basal cisterns and sulci overlying the cerebral convexities demonstrate mild enlargem ent. There is no evidence for intracranial hemorrhage or sulcal effacement. There is decreased attenuation about the periventricular white matter and deep white matter of both c erebral hemispheres, compatible with chronic small vessel ischemia. Differential diagnosis does inclu de demyelination. No mass effects are seen.No midline shift. Osseous calvarium is intact. If symptoms persist consider MRI. IMPRESSION: 1. Age related atrophic and chronic small vessel ischemic change without acute intracranial process s een at this time.
[2017-12-15 21:55] LABS: Creatine Kinase MB 0.7 ng/mL (0.0-2.4); Troponin I <0.012 ng/mL (0.000-0.034)
--- NOTE | 2017-12-15 21:55 | XR ---
EXAMINATION TYPE: XR chest 2V DATE OF EXAM: 12/15/2017 COMPARISON: 12/19/16 HISTORY: Shortness of breath TECHNIQUE: Frontal and lateral views of the chest are obtained. FINDINGS: Scattered senescent parenchymal changes noted. Hyperinflation compatible with COPD. No evidence for infiltrate. No evidence for atelectasis. Heart size is stable. Mediastinal structures are stable and grossly unremarkable. No evidence for hilar prominence. Degenerative changes dorsal spine. IMPRESSION: 1. No evidence for acute pulmonary disease.
--- NOTE | 2017-12-15 21:57 | ED ---
General Adult HPI - General Chief complaint: Chest Pain Stated complaint: chest pain Time Seen by Provider: 12/15/17 21:13 Source: patient, RN notes reviewed, old records reviewed Mode of arrival: EMS Limitations: no limitations - History of Present Illness Initial comments: This is a 78-year-old female the ER for evasive chest pain left arm pain. Patient has medical history of CVA, hypertension and multiple surgeries. Patient coming in with symptoms that started yesterday before worsened today. Left-sided chest pain chest pain readouts left arm as well as left arm numbness and tingling. Patient denies shortness of breath, denies cough or congestion no fevers. No trauma. Patient has been evaluated for her pain and chest issues within the last year which did show some vascular disease. Patient of this time is still with chest pain - Related Data Home Medications Medication Instructions Recorded Confirmed Valsartan [Diovan] 160 mg PO DAILY 10/12/14 12/15/17 Cranberry Fruit Extract [Cranberry] 500 mg PO DAILY 07/16/16 12/15/17 Cholecalciferol [Vitamin D3] 2,000 unit PO DAILY 12/20/16 12/15/17 Gabapentin [Neurontin] 300 mg PO HS 12/20/16 12/15/17 Levothyroxine Sodium [Synthroid] 150 mcg PO DAILY 12/20/16 12/15/17 Omeprazole 40 mg PO DAILY 12/20/16 12/15/17 Methocarbamol [Robaxin] 1,000 mg PO HS 12/15/17 12/15/17 Ranitidine HCl [Zantac] 150 mg PO BID 12/15/17 12/15/17 traMADol HCl [Ultram] 50 mg PO TID PRN 12/15/17 12/15/17 Allergies Allergy/AdvReac Type Severity Reaction Status Date / Time ibuprofen [From Motrin] Allergy Rash/Hives Verified 12/15/17 21:32 Review of Systems ROS Statement: Those systems with pertinent positive or pertinent negative responses have been documented in the HPI. ROS Other: All systems not noted in ROS Statement are negative. Past Medical History Past Medical History: Cancer, GERD/Reflux, Hypertension, Memory Impairment Additional Past Medical History / Comment(s): Uterine cancer, skin cancer, hypertension, dementia with memory impairment, hiatal hernia, hypertension, frequent urine checked infections, GERD, cataracts, History of Any Multi-Drug Resistant Organisms: None Reported Past Surgical History: Appendectomy, Back Surgery, Bladder Surgery, Cholecystectomy, Hysterectomy, Joint Replacement, Orthopedic Surgery Additional Past Surgical History / Comment(s): Bilateral cataract removal, resection of a cyst from the back, thyroidectomy, right hip arthroplasty, colonoscopy, hysterectomy, cholecystectomy, bladder suspension surgery, back surgery, Past Anesthesia/Blood Transfusion Reactions: No Reported Reaction Additional Past Anesthesia/Blood Transfusion Reaction / Comment(s): clausterphobia Past Psychological History: No Psychological Hx Reported Smoking Status: Former smoker Past Alcohol Use History: None Reported Past Drug Use History: None Reported - Past Family History Father Family Medical History: Diabetes Mellitus Mother Family Medical History: Diabetes Mellitus, Hypertension Additional Family Medical History / Comment(s): HEART PROBLEMS General Exam - General Exam Comments Initial Comments: NIH of 0 Limitations: no limitations General appearance: alert, in no apparent distress Head exam: Present: atraumatic, normocephalic, normal inspection Eye exam: Present: normal appearance, PERRL, EOMI. Absent: scleral icterus, conjunctival injection, periorbital swelling ENT exam: Present: normal exam, mucous membranes moist Neck exam: Present: normal inspection. Absent: tenderness, meningismus, lymphadenopathy Respiratory exam: Present: normal lung sounds bilaterally. Absent: respiratory distress, wheezes, rales, rhonchi, stridor Cardiovascular Exam: Present: regular rate, normal rhythm, normal heart sounds. Absent: systolic murmur, diastolic murmur, rubs, gallop, clicks GI/Abdominal exam: Present: soft, normal bowel sounds. Absent: distended, tenderness, guarding, rebound, rigid Extremities exam: Present: normal inspection, full ROM, normal capillary refill. Absent: tenderness, pedal edema, joint swelling, calf tenderness Back exam: Present: normal inspection Neurological exam: Present: alert, oriented X3, CN II-XII intact Psychiatric exam: Present: normal affect, normal mood Skin exam: Present: warm, dry, intact, normal color. Absent: rash Course Vital Signs 12/15/17 12/15/17 12/15/17 20:44 21:13 22:00 Temperature 97.5 F L Pulse Rate 91 68 69 Pulse Rate [ 69 Cement Gun Operator ] Respiratory Rate Blood Pressure 186/100 182/90 145/64 O2 Sat by Pulse 99 100 99 Oximetry 12/15/17 22:55 Temperature 98.2 F Pulse Rate 68 Pulse Rate [ Cement Gun Operator ] Respiratory 18 Rate Blood Pressure 133/60 O2 Sat by Pulse 98 Oximetry - Reevaluation(s) Reevaluation #1: 12/15/17 23:00 Medical records thoroughly reviewed Reevaluation #2: 12/15/17 23:00 Patient continues remain with chest pain left-sided EKG Findings - EKG Comments: EKG Findings:: G shows normal sinus rhythm rate of 75, DE 132, QRS 76, QTc 4:30. Medical Decision Making - Medical Decision Making 78 female the ER for evaluation coming in for evaluation of chest pain history of atherosclerosis. Patient will be For cough or cardiac observation. Patient also 20 of left limb pain. 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 - Lab Data Result diagrams: 12/15/17 20:57 12/15/17 20:57 Lab Results 12/15/17 12/15/17 12/15/17 Range/Units 20:57 20:57 20:57 WBC 8.5 (3.8-10.6) k/uL RBC 4.56 (3.80-5.40) m/uL Hgb 13.3 (11.4-16.0) gm/dL Hct 43.5 (34.0-46.0) % MCV 95.4 (80.0-100.0) fL MCH 29.2 (25.0-35.0) pg MCHC 30.6 L (31.0-37.0) g/dL RDW 12.7 (11.5-15.5) % Plt Count 251 (150-450) k/uL Neutrophils % 54 % Lymphocytes % 32 % Monocytes % 7 % Eosinophils % 4 % Basophils % 1 % Neutrophils # 4.5 (1.3-7.7) k/uL Lymphocytes # 2.7 (1.0-4.8) k/uL Monocytes # 0.6 (0-1.0) k/uL Eosinophils # 0.3 (0-0.7) k/uL Basophils # 0.0 (0-0.2) k/uL PT (9.0-12.0) sec INR (<1.2) APTT (22.0-30.0) sec D-Dimer (<0.60) mg/L FEU Sodium 142 (137-145) mmol/L Potassium 4.4 (3.5-5.1) mmol/L Chloride 104 (98-107) mmol/L Carbon Dioxide 27 (22-30) mmol/L Anion Gap 11 mmol/L BUN 18 H (7-17) mg/dL Creatinine 1.04 (0.52-1.04) mg/dL Est GFR (MDRD) Af Amer >60 (>60 ml/min/1.73 sqM) Est GFR (MDRD) Non-Af 50 (>60 ml/min/1.73 sqM) Glucose 90 (74-99) mg/dL POC Glucose (mg/dL) (75-99) mg/dL POC Glu Engineering Drafter ID Calcium 9.4 (8.4-10.2) mg/dL Total Bilirubin 0.7 (0.2-1.3) mg/dL AST 29 (14-36) U/L ALT 20 (9-52) U/L Alkaline Phosphatase 94 (38-126) U/L Total Creatine Kinase 52 (30-135) U/L CK-MB (CK-2) 0.7 (0.0-2.4) ng/mL CK-MB (CK-2) Rel Index 1.3 Troponin I <0.012 (0.000-0.034) ng/mL Total Protein 7.0 (6.3-8.2) g/dL Albumin 4.0 (3.5-5.0) g/dL Urine Color Urine Appearance (Clear) Urine pH (5.0-8.0) Ur Specific [place] (1.001-1.035) Urine Protein (Negative) Urine Glucose (UA) (Negative) Urine Ketones (Negative) Urine Blood (Negative) Urine Nitrite (Negative) Urine Bilirubin (Negative) Urine Urobilinogen (<2.0) mg/dL Ur Leukocyte Esterase (Negative) Urine RBC (0-5) /hpf Urine WBC (0-5) /hpf Urine Bacteria (None) /hpf 12/15/17 12/15/17 12/15/17 Range/Units 20:57 20:57 21:00 WBC (3.8-10.6) k/uL RBC (3.80-5.40) m/uL Hgb (11.4-16.0) gm/dL Hct (34.0-46.0) % MCV (80.0-100.0) fL MCH (25.0-35.0) pg MCHC (31.0-37.0) g/dL RDW (11.5-15.5) % Plt Count (150-450) k/uL Neutrophils % % Lymphocytes % % Monocytes % % Eosinophils % % Basophils % % Neutrophils # (1.3-7.7) k/uL Lymphocytes # (1.0-4.8) k/uL Monocytes # (0-1.0) k/uL Eosinophils # (0-0.7) k/uL Basophils # (0-0.2) k/uL PT 9.5 (9.0-12.0) sec INR 0.9 (<1.2) APTT 20.4 L (22.0-30.0) sec D-Dimer 0.49 (<0.60) mg/L FEU Sodium (137-145) mmol/L Potassium (3.5-5.1) mmol/L Chloride (98-107) mmol/L Carbon Dioxide (22-30) mmol/L Anion Gap mmol/L BUN (7-17) mg/dL Creatinine (0.52-1.04) mg/dL Est GFR (MDRD) Af Amer (>60 ml/min/1.73 sqM) Est GFR (MDRD) Non-Af (>60 ml/min/1.73 sqM) Glucose (74-99) mg/dL POC Glucose (mg/dL) 84 (75-99) mg/dL POC Glu Engineering Drafter ID Tova Sharma Calcium (8.4-10.2) mg/dL Total Bilirubin (0.2-1.3) mg/dL AST (14-36) U/L ALT (9-52) U/L Alkaline Phosphatase (38-126) U/L Total Creatine Kinase (30-135) U/L CK-MB (CK-2) (0.0-2.4) ng/mL CK-MB (CK-2) Rel Index Troponin I (0.000-0.034) ng/mL Total Protein (6.3-8.2) g/dL Albumin (3.5-5.0) g/dL Urine Color Light Yellow Urine Appearance Clear (Clear) Urine pH 5.5 (5.0-8.0) Ur Specific [place] 1.006 (1.001-1.035) Urine Protein Negative (Negative) Urine Glucose (UA) Negative (Negative) Urine Ketones Negative (Negative) Urine Blood Negative (Negative) Urine Nitrite Positive H (Negative) Urine Bilirubin Negative (Negative) Urine Urobilinogen <2.0 (<2.0) mg/dL Ur Leukocyte Esterase Moderate H (Negative) Urine RBC 1 (0-5) /hpf Urine WBC 52 H (0-5) /hpf Urine Bacteria Many H (None) /hpf - Radiology Data Radiology results: report reviewed (CT brain negative chest x-ray negative), image reviewed Critical Care Time Critical Care Time: Yes Total Critical Care Time: 31 Disposition Clinical Impression: Weakness, Arm paresthesia, left, Chest pain Disposition: ADMITTED IP TO THIS [facility] Condition: Undetermined Referrals: Sri Sloan MD [Primary Care Provider] - 1-2 days
[2017-12-15] MEDS ORDERED: HEPARIN SODIUM,PORCINE 5,000 UNIT/ML 1 ML VIAL IV ONE (23:01)
[2017-12-15] MEDS ORDERED: MORPHINE SULFATE 4 MG/ML SYRINGE IV PRN (23:01)
[2017-12-15] MEDS ORDERED: NITROGLYCERIN SL TABS 0.4 MG TAB SUBLINGUAL PRN (23:01)
[2017-12-15] MEDS ORDERED: HEPARIN SOD,PORK IN 0.45% NACL 25,000 UNIT in 0.45% NACL 1 500ML.BAG IV SCH (23:15)
[2017-12-16 04:22] LABS: Mean Platelet Volume 6.5; Platelet Count 206 k/uL (150-450)
[2017-12-16] MEDS: NITROGLYCERIN OINT 1 INCH/GM PACKET TOPICAL SCH ×4 (04:35→18:19)
[2017-12-16] MEDS ORDERED: HEPARIN SODIUM,PORCINE 5,000 UNIT/ML 1 ML VIAL IV PRN (04:41)
[2017-12-16 04:46] LABS: Creatine Kinase 44 U/L (30-135)
[2017-12-16 04:47] LABS: Cholesterol 130 mg/dL (<200); HDL Cholesterol 47 mg/dL (40-60); LDL Cholesterol,Calculated 64 mg/dL (0-99); Triglycerides 94 mg/dL (<150)
[2017-12-16 04:58] LABS: Creatine Kinase MB 0.6 ng/mL (0.0-2.4); Troponin I <0.012 ng/mL (0.000-0.034)
[2017-12-16] MEDS ORDERED: ACETAMINOPHEN TAB 325 MG TAB PO PRN (07:09)
[2017-12-16] MEDS: ATORVASTATIN 80 MG TAB PO SCH (08:28)
[2017-12-16] MEDS ORDERED: ASPIRIN 325 MG TAB PO SCH (09:00)
[2017-12-16 10:42] LABS: Creatine Kinase 48 U/L (30-135)
[2017-12-16 10:54] LABS: Creatine Kinase MB 0.6 ng/mL (0.0-2.4); Troponin I <0.012 ng/mL (0.000-0.034)
--- NOTE | 2017-12-16 13:11 | CONS ---
CONSULTATION Mrs. Ge is an 86-year-old female who is seen for evaluation of chest pain. The patient's medical records are reviewed. Patient came to the emergency room yesterday with a complaint of chest pain. The patient gives a history that she has been having some substernal pain in the left precordial pain with some radiation to the left arm. The pain comes and goes. Patient denied any nausea, vomiting or sweating. Patient denies any cough or fever. This patient was admitted several months ago or about a year ago with chest pain. Patient has been subsequently evaluated by Dr. Colby and had a stress test done which did not show any significant abnormality. Patient was found to have some carotid disease. The patient has a history of hypertension and possibly prior stroke. The patient most of the time is confined to the house. She is able to walk with the help of the walker and she has exertional shortness of breath. The patient's home medications include valsartan, Neurontin, Zantac, Ultram. PAST MEDICAL HISTORY: Past medical history includes history of appendicectomy, back surgery, bladder surgery, cholecystectomy, hysterectomy, joint replacement, orthopedic surgery, bilateral cataract surgery. SOCIAL HISTORY: Patient is a former smoker. PHYSICAL EXAMINATION: In the emergency room, this patient was afebrile and her initial blood pressure was 186/100 mmHg. The patient at present is comfortable. Blood pressure is 144/61 mmHg. Heart rate is 70 per minute. HEENT examination is negative. Neck is supple. There is no increase in jugular venous pressure. Both the carotid pulses are felt. There is no bruit. Chest is symmetrical. HEART: The PMI is not felt. First and second heart sounds are normal. There is no evidence of any murmur. Lungs are clinically clear to auscultation and percussion. Abdomen is soft. Liver and spleen are not enlarged. EXTREMITIES: There is no evidence of any leg edema. Peripheral pulsations are 2+. EKG shows normal sinus rhythm without any acute ischemic changes. Cardiac enzymes are normal. FINAL IMPRESSION: 1. Chest pain, rule out unstable angina syndrome. At present, there is no evidence of any acute coronary syndrome. 2. History of hypertension. RECOMMENDATIONS: I had a long discussion with the patient as well as the patient's daughter. Various treatment options of medical treatment the cardiac catheterization were discussed with the patient. The risk of the cardiac catheterization including stroke, heart attack were fully discussed with the patient. At present, patient would like to continue the medical treatment. If patient continues to have chest pain in spite of the medical treatment and is agreeable then called for further evaluation with the cardiac catheterization can be considered. I will add Lopressor 25 mg b.i.d. Continue nitroglycerin p.r.n. and nitroglycerin paste. EKG would be done if patient had more episodes of chest pain. MMODL / IJN: [id number] /
[2017-12-16] MEDS ORDERED: MORPHINE ORAL SOLN 10 MG/5 ML CUP PO PRN (13:21)
[2017-12-16] MEDS ORDERED: traMADol 50 MG TAB PO PRN (13:35)
--- NOTE | 2017-12-16 13:49 | P.HPIM ---
History of Present Illness H&P Date: 12/16/17 Chief Complaint: Chest pain This is a 86-year-old female, patient of Dr. Sloan. She has a known past medical history hypertension, hypothyroidism, subclavian steel syndrome and dementia. Patient presented to the emergency room with complaints of chest pain. Apparently this morning patient was having chest pain in the centers of her chest radiating down into the left arm. Also having some tingling in the left arm. She was sweaty and clammy also having some shortness of breath. Came into the emergency room via ambulance for further evaluation and treatment. EKG had shown normal sinus rhythm troponins were negative 3 sets and d-dimer was negative. Chest x-ray negative. Computed tomography scan of the brain showing age-related atrophic and chronic small vessel ischemic changes without acute intracranial process. Patient was placed on IV heparin. She has been seen evaluated by cardiology. Patient had a stress test in May 2017 which was reported normal. Patient also had another episode of chest pain this morning and Nitropaste was given with relief. Also note that patient did have aspirin for her chest pain episode at home and that did give her some relief as well. Patient also had been on Lasix recently for some lower extremity edema. Daughter at bedside reports that she finished the Lasix dosage. Both patient and daughter report no history of congestive heart failure. She did have some accelerated hypertension on admission with a blood pressure 186/100. Metoprolol was added by cardiology. Cardiology is recommending that patient remains in observation through the night to investigate for any further episodes of chest pain. They did discuss with the patient and daughter about heart catheterization. At this time the patient would prefer medical management. But if there are further emesis chest pain further discussion about heart catheterization will be done. Patient also found have evidence of a UTI and started on Rocephin. Patient denies any fever any nausea or vomiting, any dizziness or lightheadedness. Denies any bowel movement changes or urinary symptoms. She also has a history of recurrent UTIs and an eroded mesh for her previous bladder surgery. She is followed by Dr. Velazquez outpatient. Review of Systems Please refer to HPI otherwise unremarkable Past Medical History Past Medical History: Cancer, GERD/Reflux, Hypertension, Memory Impairment Additional Past Medical History / Comment(s): Uterine cancer, skin cancer, hypertension, dementia with memory impairment, hiatal hernia, frequent UTI'S, GERD, cataracts, History of Any Multi-Drug Resistant Organisms: None Reported Past Surgical History: Appendectomy, Back Surgery, Bladder Surgery, Cholecystectomy, Hysterectomy, Joint Replacement, Orthopedic Surgery Additional Past Surgical History / Comment(s): Bilateral cataract removal, resection of a cyst from the back, thyroidectomy, right hip (total) and left hip arthroplasty, colonoscopy, hysterectomy, cholecystectomy, bladder suspension surgery, back surgery, right arm fracture with surgery Past Anesthesia/Blood Transfusion Reactions: No Reported Reaction Additional Past Anesthesia/Blood Transfusion Reaction / Comment(s): clausterphobia Smoking Status: Former smoker - Past Family History Father Family Medical History: Diabetes Mellitus Mother Family Medical History: Diabetes Mellitus, Hypertension Additional Family Medical History / Comment(s): HEART PROBLEMS Medications and Allergies Home Medications Medication Instructions Recorded Confirmed Type Valsartan [Diovan] 160 mg PO DAILY 10/12/14 12/15/17 History Cranberry Fruit Extract [Cranberry] 500 mg PO DAILY 07/16/16 12/15/17 History Cholecalciferol [Vitamin D3] 2,000 unit PO DAILY 12/20/16 12/15/17 History Gabapentin [Neurontin] 300 mg PO HS 12/20/16 12/15/17 History Levothyroxine Sodium [Synthroid] 150 mcg PO DAILY 12/20/16 12/15/17 History Omeprazole 40 mg PO BID 12/20/16 12/16/17 History Methocarbamol [Robaxin] 1,000 mg PO HS 12/15/17 12/15/17 History Ranitidine HCl [Zantac] 150 mg PO BID 12/15/17 12/15/17 History traMADol HCl [Ultram] 50 mg PO TID PRN 12/15/17 12/15/17 History Cetirizine HCl [Zyrtec] 10 mg PO DAILY 12/16/17 12/16/17 History Allergies Allergy/AdvReac Type Severity Reaction Status Date / Time ibuprofen [From Motrin] Allergy Rash/Hives Verified 12/16/17 00:23 Physical Exam Vitals: Vital Signs Temp Pulse Pulse Pulse Resp BP BP 12/16/17 11:46 98.1 F 70 18 144/61 12/16/17 07:50 97.8 F 64 18 138/69 12/16/17 04:00 97.9 F 68 18 143/78 12/16/17 00:00 97.9 F 74 18 119/68 12/15/17 22:55 98.2 F 68 18 133/60 12/15/17 22:00 69 18 145/64 12/15/17 21:13 68 69 18 182/90 12/15/17 20:44 97.5 F L 91 18 186/100 Pulse Ox 12/16/17 11:46 97 12/16/17 07:50 94 L 12/16/17 04:00 99 12/16/17 00:00 94 L 12/15/17 22:55 98 12/15/17 22:00 99 12/15/17 21:13 100 12/15/17 20:44 99 Intake and Output 12/15/17 12/16/17 12/16/17 22:59 06:59 14:59 Intake Total 98.475 Output Total 1 Balance 97.475 Intake: Intake, IV Titration 98.475 Amount Heparin Sod,Pork in 0.45% 98.475 NaCl 25,000 unit In 0.45 % NaCl 1 500ml.bag @ 12 UNITS/KG/HR 18.18 mls/hr IV .Q24H [facility] Rx#: [id number] Output: Urine 1 Other: Voiding Method Toilet Diaper Incontinent # Voids 1 Weight 75.75 kg Head normocephalic Neck supple Lungs clear to auscultation bilaterally no wheezing or crackles Heart regular rate and rhythm S1-S2, no rub or gallop Abdomen is soft nontender nondistended positive bowel sounds no hepatosplenomegaly Extremities +1 edema bilateral lower extremities Neuro alert and orientated to 3 Results CBC & Chem 7: 12/16/17 04:02 12/15/17 20:57 Labs: Abnormal Lab Results - Last 24 Hours (Table) 12/15/17 12/15/17 12/15/17 Range/Units 20:57 20:57 20:57 MCHC 30.6 L (31.0-37.0) g/dL APTT 20.4 L (22.0-30.0) sec BUN 18 H (7-17) mg/dL Urine Nitrite (Negative) Ur Leukocyte Esterase (Negative) Urine WBC (0-5) /hpf Urine Bacteria (None) /hpf 12/15/17 12/16/17 12/16/17 Range/Units 20:57 04:02 09:27 MCHC (31.0-37.0) g/dL APTT 41.3 H 36.1 H (22.0-30.0) sec BUN (7-17) mg/dL Urine Nitrite Positive H (Negative) Ur Leukocyte Esterase Moderate H (Negative) Urine WBC 52 H (0-5) /hpf Urine Bacteria Many H (None) /hpf Microbiology - Last 24 Hours (Table) 12/15/17 20:57 Urine Culture - Preliminary Urine,Catheterized Thrombosis Risk Factor Assmnt - Choose All That Apply Any of the Below Risk Factors Present?: Yes Each Factor Represents 1 point: Hx of IBD, Obesity (BMI >25), Swollen legs ( current) Other Risk Factors: Yes Each Risk Factor Represents 3 Points: Age 75 years or older Other congenital or acquired thrombophilia - If yes, enter type in comment: No Thrombosis Risk Factor Assessment Total Risk Factor Score: 6 Thrombosis Risk Factor Assessment Level: High Risk Assessment and Plan Assessment: 1. Chest pain: Troponins negative 3. EKG normal sinus rhythm. Chest x-ray negative. D-dimer within normal range. Cardiology following closely currently trying medical management. Patient may need heart catheterization, but patient is hesitant. Continue to monitor patient for chest pain. Agree that if chest pain recurs repeat troponin and EKG need to be completed. Cardiology did add Lopressor 25 mg twice a day. Continue aspirin and Lipitor. Continue IV heparin 2. Essential hypertension with evidence of accelerated hypertension on admission. Metoprolol added by cardiology. Resume her Diovan. 3. UTI: Check urine culture. Continue IV Rocephin. Patient has a history of recurrent UTI 4. History of subclavian steal syndrome 5. Hypothyroidism continue Synthroid GI prophylaxis Pepcid and DVT prophylaxis IV heparin Time with Patient: Greater than 30 (Greater than 50% of the total time spent in counseling and coordination of care.I performed an examination of the patient and discussed their management with the physician Stiff Leg Derrick Operator. I have reviewed the Physician Stiff Leg Derrick Operator's notes and agree with the documented findings and plan of care)
[2017-12-16] MEDS: LEVOTHYROXINE 75 MCG TAB PO SCH (15:17)
[2017-12-16] MEDS: METOPROLOL TARTRATE 25 MG TAB PO SCH ×2 (15:18→21:08)
[2017-12-16] MEDS: PANTOPRAZOLE 40 MG TABLET PO SCH (15:56)
[2017-12-16] MEDS ORDERED: cefTRIAXone IN SWFI 1,000 MG/10 ML SYRINGE IVP SCH (16:00)
[2017-12-16] MEDS ORDERED: GABAPENTIN 300 MG CAP PO SCH (21:00)
[2017-12-16] MEDS ORDERED: METHOCARBAMOL 500 MG TAB PO SCH (21:00)
[2017-12-16] MEDS: FAMOTIDINE 20 MG TAB PO SCH (21:08)
[2017-12-17 00:54] VITALS: RESP 16
[2017-12-17] MEDS: NITROGLYCERIN OINT 1 INCH/GM PACKET TOPICAL SCH ×2 (02:13→06:50)
[2017-12-17] MEDS: PANTOPRAZOLE 40 MG TABLET PO SCH (06:49)
[2017-12-17] MEDS: LEVOTHYROXINE 75 MCG TAB PO SCH (06:49)
[2017-12-17 06:58] LABS: Mean Platelet Volume 6.6; Platelet Count 246 k/uL (150-450)
[2017-12-17] MEDS: METOPROLOL TARTRATE 25 MG TAB PO SCH (08:28)
[2017-12-17] MEDS: FAMOTIDINE 20 MG TAB PO SCH (08:28)
[2017-12-17] MEDS: ATORVASTATIN 80 MG TAB PO SCH (08:29)
[2017-12-17] MEDS ORDERED: ASPIRIN 81 MG PO SCH (09:00)
[2017-12-17] MEDS ORDERED: LORATADINE 10 MG TAB PO SCH (09:00)
[2017-12-17] MEDS ORDERED: ISOSORBIDE MONONITRATE ER 30 MG TAB.ER.24H PO SCH (09:00)
[2017-12-17] MEDS ORDERED: VALSARTAN 160 MG TAB PO SCH (09:00)
--- NOTE | 2017-12-17 09:48 | CONS ---
CONSULTATION CARDIOLOGY CONSULTATION NOTE Dee is an 86-year-old lady who was admitted to hospital with unstable angina and opted for medical therapy. This morning she is doing better, has not had any further episodes of chest pain and is ambulating without any problems. She is on aspirin, Lipitor, Synthroid, Lopressor, Nitro paste. On exam, comfortable at rest. Heart rate is 60 beats per minute. Blood pressure is 157/60, respiratory rate is 18. Chest exam reveals good air entry bilaterally. Heart exam reveals first and second heart sounds. No gallop. Has a systolic murmur at the apex. Abdomen is soft. Examination of the extremities did not reveal any edema. Peripheral pulses are felt. ASSESSMENT: Unstable angina. PLAN: Patient will be treated with optimal medical therapy. She is stable to be discharged home on aspirin, beta blockers, ARBS, statins and nitrates. I am going to stop the nitro paste and put her on Imdur 60 mg daily. MMODL / IJN: [id number] /
[2017-12-17 11:47] VITALS: BP 127/59; PULSE 60; TEMP 98.1
[2017-12-17] MEDS ORDERED: CHOLECALCIFEROL 1,000 UNIT TAB PO SCH (12:00)
--- NOTE | 2017-12-17 13:08 | P.DS ---
Providers Date of admission: 12/15/17 22:59 Expected date of discharge: 12/17/17 Attending physician: Joaquín Lockhart Consults: 12/15/17 23:01 Consult Physician Urgent Consulting Provider: Jose Gonzalez Consult Reason/Comments: cp Do you want consulting provider notified?: Yes Primary care physician: Sri Sloan Hospital Course: Discharge diagnosis 1. Chest pain: Likely secondary to unstable angina. Troponins negative 3. EKG normal sinus rhythm. Chest x-ray negative. D-dimer within normal range. Cardiology following closely currently trying medical management. Patient may need heart catheterization, but patient is hesitant. Continue to monitor patient for chest pain. Patient has been chest pain-free. Cardiology is cleared her for discharge. They've added Lopressor, Lipitor, aspirin, and Imdur 2. Essential hypertension with evidence of accelerated hypertension on admission. Metoprolol added by cardiology. Resume her Diovan. 3. UTI: Check urine culture. Continue IV Rocephin. Patient has a history of recurrent UTI. Urine culture pending at discharge. We'll place her on Ceftin 500 mg twice a day for 5 more days 4. History of subclavian steal syndrome 5. Hypothyroidism continue Synthroid Hospital course This is a 86-year-old female, patient of Dr. Sloan. She has a known past medical history hypertension, hypothyroidism, subclavian steel syndrome and dementia. Patient presented to the emergency room with complaints of chest pain. Apparently this morning patient was having chest pain in the centers of her chest radiating down into the left arm. Also having some tingling in the left arm. She was sweaty and clammy also having some shortness of breath. Came into the emergency room via ambulance for further evaluation and treatment. EKG had shown normal sinus rhythm troponins were negative 3 sets and d-dimer was negative. Chest x-ray negative. Computed tomography scan of the brain showing age-related atrophic and chronic small vessel ischemic changes without acute intracranial process. Patient was placed on IV heparin. She has been seen evaluated by cardiology. Patient had a stress test in May 2017 which was reported normal. Patient also had another episode of chest pain this morning and Nitropaste was given with relief. Also note that patient did have aspirin for her chest pain episode at home and that did give her some relief as well. Patient also had been on Lasix recently for some lower extremity edema. Daughter at bedside reports that she finished the Lasix dosage. Both patient and daughter report no history of congestive heart failure. She did have some accelerated hypertension on admission with a blood pressure 186/100. Metoprolol was added by cardiology. Cardiology is recommending that patient remains in observation through the night to investigate for any further episodes of chest pain. They did discuss with the patient and daughter about heart catheterization. At this time the patient would prefer medical management. But if there are further emesis chest pain further discussion about heart catheterization will be done. Patient also found have evidence of a UTI and started on Rocephin. Patient denies any fever any nausea or vomiting, any dizziness or lightheadedness. Denies any bowel movement changes or urinary symptoms. She also has a history of recurrent UTIs and an eroded mesh for her previous bladder surgery. She is followed by Dr. Velazquez outpatient. Patient was seen evaluated by cardiology. OH was ruled out. Likely her symptoms are related to unstable angina. Cardiology did adjust medications and she has been chest pain-free. As stated above they've added Lopressor aspirin and Imdur. Patient's cholesterol is 130 and LDL is 64. Lipitor will be decreased down to 20 mg from the 80 mg. Patient will follow-up with cardiology and her PCP in 1 week. Patient is medically stable for discharge I performed an examination of the patient and discussed their management with the physician Radio Dispatcher. I have reviewed the Physician Radio Dispatcher's notes and agree with the documented findings and plan of care Patient Condition at Discharge: Stable Plan - Discharge Summary Discharge Rx Participant: No New Discharge Prescriptions: New Aspirin 81 mg PO DAILY #30 chew Atorvastatin Calcium [Lipitor] 10 mg PO DAILY #30 tab Isosorbide Mononitrate ER [Imdur] 30 mg PO DAILY #30 tab.er.24h Metoprolol Tartrate [Lopressor] 25 mg PO BID #60 tab Cefuroxime Axetil [Ceftin] 500 mg PO BID #10 tab Continue Valsartan [Diovan] 160 mg PO DAILY Cranberry Fruit Extract [Cranberry] 500 mg PO DAILY Cholecalciferol [Vitamin D3] 2,000 unit PO DAILY Levothyroxine Sodium [Synthroid] 150 mcg PO DAILY Gabapentin [Neurontin] 300 mg PO HS Omeprazole 40 mg PO BID Ranitidine HCl [Zantac] 150 mg PO BID Methocarbamol [Robaxin] 1,000 mg PO HS traMADol HCl [Ultram] 50 mg PO TID PRN PRN Reason: Pain Cetirizine HCl [Zyrtec] 10 mg PO DAILY Discharge Medication List Valsartan [Diovan] 160 mg PO DAILY 10/12/14 [History] Cranberry Fruit Extract [Cranberry] 500 mg PO DAILY 07/16/16 [History] Cholecalciferol [Vitamin D3] 2,000 unit PO DAILY 12/20/16 [History] Gabapentin [Neurontin] 300 mg PO HS 12/20/16 [History] Levothyroxine Sodium [Synthroid] 150 mcg PO DAILY 12/20/16 [History] Omeprazole 40 mg PO BID 12/20/16 [History] Methocarbamol [Robaxin] 1,000 mg PO HS 12/15/17 [History] Ranitidine HCl [Zantac] 150 mg PO BID 12/15/17 [History] traMADol HCl [Ultram] 50 mg PO TID PRN 12/15/17 [History] Cetirizine HCl [Zyrtec] 10 mg PO DAILY 12/16/17 [History] Aspirin 81 mg PO DAILY #30 chew 12/17/17 [Rx] Atorvastatin Calcium [Lipitor] 10 mg PO DAILY #30 tab 12/17/17 [Rx] Cefuroxime Axetil [Ceftin] 500 mg PO BID #10 tab 12/17/17 [Rx] Isosorbide Mononitrate ER [Imdur] 30 mg PO DAILY #30 tab.er.24h 12/17/17 [Rx] Metoprolol Tartrate [Lopressor] 25 mg PO BID #60 tab 12/17/17 [Rx] Follow up Appointment(s)/Referral(s): Sri Sloan MD [Primary Care Provider] - 1 Week Camila Flores MD [STAFF PHYSICIAN] - 1 Week Activity/Diet/Wound Care/Special Instructions: Diet: cardiac Activity: as tolerated Discharge Disposition: HOME SELF-CARE
== END 2017-12-17 13:33 | disposition home or self-care (01) ==
LOC: EC 20:42 → 3OBS 22:59
PROVIDERS: ADMIT Internal Medicine; ATTEND Internal Medicine
DX: R07.89 Other chest pain (principal); R20.2 Paresthesia of skin; R06.02 Shortness of breath; I10 Essential (primary) hypertension; N39.0 Urinary tract infection, site not specified; E03.9 Hypothyroidism, unspecified; T83.718A Erosion of other implanted mesh to organ or tissue, initial encounter; R60.0 Localized edema; F03.90 Unspecified dementia, unspecified severity, without behavioral disturbance, psychotic disturbance, mood disturbance, and anxiety; R41.3 Other amnesia; K21.9 Gastro-esophageal reflux disease without esophagitis; K44.9 Diaphragmatic hernia without obstruction or gangrene; E66.9 Obesity, unspecified; Z68.25 Body mass index [BMI] 25.0-25.9, adult; Z79.899 Other long term (current) drug therapy; Z88.6 Allergy status to analgesic agent; Z87.19 Personal history of other diseases of the digestive system; Z87.891 Personal history of nicotine dependence; Z86.79 Personal history of other diseases of the circulatory system; Z85.828 Personal history of other malignant neoplasm of skin; Z85.42 Personal history of malignant neoplasm of other parts of uterus; Z83.3 Family history of diabetes mellitus; Z82.49 Family history of ischemic heart disease and other diseases of the circulatory system
CPT/HCPCS: 99291 ×2; 96365 ×2; 96375 ×2; 96376 ×3; 96366; 36415; 93005; 85379; 80061; 80053; 82550 ×2; 82553 ×2; 84484 ×2; 85025; 85049 ×2; 85610; 85730 ×2; 81001; 87086; 87077; 87186; 71046; 70450; G0378 ×3; J1644 ×3; J0696 ×2

== ENCOUNTER 2018-01-07 06:03 | Day surgery (SDC) | payer MEDICARE, BC ==
[2018-01-04 09:02] VITALS: BMI 29.0
[~2018-01-07 06:03] MED LIST: ALPRAZolam 0.25 MG TAB PO PRN; ALPRAZolam 0.5 MG TAB PO PRN; ATORVASTATIN 80 MG TAB PO STA; NITROGLYCERIN SL TABS 0.4 MG TAB SUBLINGUAL PRN; SODIUM CHLORIDE 0.9% 1,000 ML in EMPTY BAG 1 BAG IV ONE
[2018-01-07 06:47] VITALS: TEMP 98.5
[2018-01-07] MEDS ORDERED: LIDOCAINE 2% INJ 20 MG/ML (20 ML MDV) ONE ×2 (07:11→07:38)
[2018-01-07] MEDS ORDERED: MIDAZOLAM 2 MG/2 ML VIAL ONE (07:12)
[2018-01-07] MEDS ORDERED: MIDAZOLAM 2 MG/2 ML VIAL IV ONE (07:37)
[2018-01-07] MEDS ORDERED: LIDOCAINE 2% INJ 20 MG/ML SQ ONE (07:42)
[2018-01-07] MEDS ORDERED: IODIXANOL 320 MG/ML 100 ML IV ONE (07:53)
[2018-01-07] MEDS ORDERED: RX INFO: IV CONTRAST WAS GIVEN 1 EACH MISC MISCELLANE PRN (07:59)
[2018-01-07] MEDS ORDERED: SODIUM CHLORIDE 0.9% 1,000 ML IV SCH (08:00)
--- NOTE | 2018-01-07 08:31 | CC ---
CARDIAC CATHETERIZATION REPORT INDICATION: Unstable angina. PROCEDURE NOTE: After obtaining informed consent, left heart catheterization and coronary angiogram were performed via the right femoral artery using standard Kyra catheters. The patient tolerated the procedure well without any obvious immediate complications. A femoral angiogram was performed and decision was made for manual hemostasis. Patient received moderate conscious sedation. Total sedation time was 16 minutes. FINDINGS: 1. HEMODYNAMICS: Left ventricular end-diastolic pressure is 14 to 16 mm. There is no significant gradient across the aortic valve. 2. LEFT VENTRICULOGRAM: Left ventriculogram is not performed. 3. ANGIOGRAPHIC DATA: 4. Left main coronary artery: Left main coronary artery is a normal-sized vessel and is free of stenosis. Divides into left anterior descending coronary artery and circumflex coronary artery. LAD and its branches are free of significant disease. There is a mild atherosclerotic plaque in its proximal portion. Circumflex coronary artery is a codominant vessel and is free of significant disease. The right coronary artery shows mild nonobstructive disease, it is a codominant vessel. CONCLUSIONS: 1. Mild nonobstructive coronary artery disease. 2. Mildly elevated left ventricular end-diastolic pressures. PLAN: I reviewed angiographic data with the patient and told her that her chest discomfort is noncardiac in origin. MMODL / IJN: [id number] /
[2018-01-07 09:16] VITALS: RESP 16
[2018-01-07 11:38] VITALS: PULSE 62
[2018-01-07 14:09] VITALS: BP 156/65
== END 2018-01-07 15:15 | disposition home or self-care (01) ==
LOC: CATHCVL 06:03
PROVIDERS: ATTEND Internal Medicine Cardiovascular Disease
DX: I25.110 Atherosclerotic heart disease of native coronary artery with unstable angina pectoris (principal); I10 Essential (primary) hypertension; Z79.82 Long term (current) use of aspirin; Z79.899 Other long term (current) drug therapy; Z88.6 Allergy status to analgesic agent
CPT/HCPCS: 93458; C1894; C1769; J2001; J2250; Q9967

== ENCOUNTER 2018-02-28 22:10 | Inpatient (IN) | payer MEDICARE, BC ==
[2018-02-28 22:19] LABS: Glucose,Whole Blood 121 mg/dL (75-99)
[2018-02-28] MEDS ORDERED: SODIUM CHLORIDE 0.9% 1,000 ML IV STA (22:31)
[2018-02-28 22:50] LABS: Basophils % (A) 0 %; Eosinophils # (A) 0.2 k/uL (0-0.7); Eosinophils % (A) 1 %; HCT 40.5 % (34.0-46.0); HGB 13.1 gm/dL (11.4-16.0); Lymphocytes # (A) 1.6 k/uL (1.0-4.8); Lymphocytes % (A) 14 %; MCH 28.2 pg (25.0-35.0); MCHC 32.2 g/dL (31.0-37.0); MCV 87.6 fL (80.0-100.0); Mean Platelet Volume 7.1; Monocytes # (A) 0.5 k/uL (0-1.0); Monocytes % (A) 5 %; Neutrophils # (A) 8.9 k/uL (1.3-7.7); Neutrophils % (A) 78 %; Platelet Count 240 k/uL (150-450); RBC 4.63 m/uL (3.80-5.40); RDW 12.7 % (11.5-15.5); WBC 11.4 k/uL (3.8-10.6)
--- NOTE | 2018-02-28 22:57 | CT ---
EXAMINATION TYPE: CT brain wo con DATE OF EXAM: 02/28/2018 COMPARISON: 12/15/2017 HISTORY: Right sided weakness. Unresponsive CT DLP: 788.8 mGycm Automated exposure control for dose reduction was used. FINDINGS: Multiple axial sections were obtained of the brain with no contrast. There is mild mucosal thickening in the right maxillary sinus. There is cerebral cortical atrophy. Th ere is some hypodensity in the periventricular white matter. There is no mass effect nor midline shif t. There is no sign of intracranial hemorrhage. There is mucosal thickening in the right frontal sinu s. 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 MILD SINUSITIS. NO SIGNIFICANT CHANGE COMPAR ED TO OLD EXAM.
--- NOTE | 2018-02-28 22:59 | XR ---
EXAMINATION TYPE: XR chest 2V DATE OF EXAM: 02/28/2018 COMPARISON: 01/19/2018 HISTORY: Altered mental status TECHNIQUE: Frontal and lateral views of the chest are obtained. FINDINGS: There is no heart failure nor confluent pneumonic infiltrate. There is slight coarsening o f interstitial markings. There is no pleural effusion. Thoracic aorta is atheromatous. There are ches t leads. IMPRESSION: No active cardiopulmonary disease. Inspiration is decreased slightly compared to old exa m.
[2018-02-28 23:04] LABS: Albumin 4.1 g/dL (3.5-5.0); Calcium 9.2 mg/dL (8.4-10.2); Potassium 4.6 mmol/L (3.5-5.1); Total Bilirubin 0.6 mg/dL (0.2-1.3)
[2018-02-28 23:26] LABS: Creatine Kinase MB 0.8 ng/mL (0.0-2.4); Troponin I 0.025 ng/mL (0.000-0.034)
[2018-02-28 23:27] LABS: Prothrombin Time 9.8 sec (9.0-12.0)
--- NOTE | 2018-02-28 23:30 | ED ---
Neuro HPI - General Chief Complaint: Neuro Symptoms/Deficit Stated Complaint: Neuro Deficits Time Seen by Provider: 02/28/18 22:22 Source: EMS Mode of arrival: EMS Limitations: altered mental status - History of Present Illness Is the patient presenting with stroke symptoms?: Yes -: hour(s) (6 hours) Initial Comments: 87 years O female comes in with the right side weakness, right upper extremity is quite flaccid she is not able to move her right-sided leg as well she was seen doing fine by her daughter at 2 PM 4 PM neighbor saw her walking around with the dog , on arrival to the ER the time window was greater than 6 hours, she is able to speak she was able to follow commands partially some headache no chest pain no shortness of breath she answeredquestions by nodding her head unable to move her right upper or lower extremity. Daughter was present in the room and she stated she is DO NOT RESUSCITATE she is DURABLE POWER OF CLOUD ARCHITECT along with her brother procedure lives in Brother is 3 hours away - Related Data Home Medications: Home Medications Medication Instructions Recorded Confirmed Valsartan [Diovan] 160 mg PO DAILY 10/12/14 02/28/18 Cranberry Fruit Extract [Cranberry] 1,000 mg PO DAILY 07/16/16 02/28/18 Gabapentin [Neurontin] 300 mg PO DAILY 12/20/16 02/28/18 Levothyroxine Sodium [Synthroid] 150 mcg PO DAILY 12/20/16 02/28/18 Methocarbamol [Robaxin] 1,000 mg PO HS 12/15/17 02/28/18 Ranitidine HCl [Zantac] 150 mg PO BID 12/15/17 02/28/18 Donepezil [Aricept] 10 mg PO HS 01/19/18 02/28/18 Furosemide [Lasix] 40 mg PO DAILY 01/19/18 02/28/18 Vitamin E 1,000 unit PO DAILY 01/19/18 02/28/18 Cetirizine HCl [Zyrtec] 10 mg PO DAILY 02/28/18 02/28/18 Diclofenac Sodium [Voltaren Gel] 2 gram TOPICAL DAILY PRN 02/28/18 02/28/18 Omeprazole [PriLOSEC] 40 mg PO DAILY 02/28/18 02/28/18 Wheat Dextrin [Benefiber] 1 packet PO DAILY 02/28/18 02/28/18 Previous Rx's Medication Instructions Recorded Aspirin 81 mg PO DAILY #30 chew 12/17/17 Atorvastatin Calcium [Lipitor] 10 mg PO DAILY #30 tab 12/17/17 Metoprolol Tartrate [Lopressor] 25 mg PO BID #60 tab 12/17/17 Allergies/Adverse Reactions: Allergies Allergy/AdvReac Type Severity Reaction Status Date / Time ibuprofen [From Motrin] Allergy Rash/Hives Verified 02/28/18 22:38 lactose AdvReac Unknown Verified 02/28/18 22:38 ADHESIVE (CANCELING AND CUTTING CONTROL CLERK Allergy Unknown Red Skin Uncoded 01/19/18 07:27 STICKERS) with rash. Review of Systems ROS Statement: Those systems with pertinent positive or pertinent negative responses have been documented in the HPI. ROS Other: All systems not noted in ROS Statement are negative. General Exam - General Exam Comments Initial Comments: General: The patient is awake and the facial asymmetry and unable to speak is able to follow the commands she is in severe distress Skin: Skin is warm and dry and no rashes or lesions are noted. Eye: Pupils are equal, round and reactive to light, extra-ocular movements are intact; there is normal conjunctiva bilaterally. Ears, nose, mouth and throat: There are moist mucous membranes and no oral lesions. Neck: The neck is supple, there is no tenderness Cardiovascular: There is a regular rate and rhythm. Respiratory: To auscultation bilateral, deccrease breath sounds bilateral Gastrointestinal: Soft, non-distended, non-tender abdomen without masses or organomegaly noted. There is no rebound or guarding present. Bowel sounds are unremarkable. Back: There is no tenderness to palpation in the midline. There is no obvious deformity. Musculoskeletal: Right upper extremity and the right lower extremity are quite flaccid, left upper left or lower extremity are normal Neurological: Exam is consistent with the right-sided CVA, unable to evaluate the cranial nerves because he is not able to follow the commands at this point. Psychiatric: Cooperative, with the evaluation is impossible at this point Limitations: altered mental status Stroke MDM - Lab Data Result diagrams: 02/28/18 22:39 02/28/18 22:45 Lab Results 02/28/18 02/28/18 02/28/18 Range/Units 22:17 22:39 22:45 WBC 11.4 H (3.8-10.6) k/uL RBC 4.63 (3.80-5.40) m/uL Hgb 13.1 (11.4-16.0) gm/dL Hct 40.5 (34.0-46.0) % MCV 87.6 (80.0-100.0) fL MCH 28.2 (25.0-35.0) pg MCHC 32.2 (31.0-37.0) g/dL RDW 12.7 (11.5-15.5) % Plt Count 240 (150-450) k/uL Neutrophils % 78 % Lymphocytes % 14 % Monocytes % 5 % Eosinophils % 1 % Basophils % 0 % Neutrophils # 8.9 H (1.3-7.7) k/uL Lymphocytes # 1.6 (1.0-4.8) k/uL Monocytes # 0.5 (0-1.0) k/uL Eosinophils # 0.2 (0-0.7) k/uL Basophils # 0.0 (0-0.2) k/uL Sodium (137-145) mmol/L Potassium (3.5-5.1) mmol/L Chloride (98-107) mmol/L Carbon Dioxide (22-30) mmol/L Anion Gap mmol/L BUN (7-17) mg/dL Creatinine (0.52-1.04) mg/dL Est GFR (CKD-EPI)AfAm (>60 ml/min/1.73 sqM) Est GFR (CKD-EPI)NonAf (>60 ml/min/1.73 sqM) Glucose (74-99) mg/dL POC Glucose (mg/dL) 121 H (75-99) mg/dL POC Glu Investigator Utility Bill Complaints ID Leigh Ann Garduno Calcium (8.4-10.2) mg/dL Total Bilirubin (0.2-1.3) mg/dL AST (14-36) U/L ALT (9-52) U/L Alkaline Phosphatase (38-126) U/L Total Creatine Kinase 84 (30-135) U/L CK-MB (CK-2) 0.8 (0.0-2.4) ng/mL CK-MB (CK-2) Rel Index 1.0 Troponin I 0.025 (0.000-0.034) ng/mL Total Protein (6.3-8.2) g/dL Albumin (3.5-5.0) g/dL 02/28/18 Range/Units 22:45 WBC (3.8-10.6) k/uL RBC (3.80-5.40) m/uL Hgb (11.4-16.0) gm/dL Hct (34.0-46.0) % MCV (80.0-100.0) fL MCH (25.0-35.0) pg MCHC (31.0-37.0) g/dL RDW (11.5-15.5) % Plt Count (150-450) k/uL Neutrophils % % Lymphocytes % % Monocytes % % Eosinophils % % Basophils % % Neutrophils # (1.3-7.7) k/uL Lymphocytes # (1.0-4.8) k/uL Monocytes # (0-1.0) k/uL Eosinophils # (0-0.7) k/uL Basophils # (0-0.2) k/uL Sodium 146 H (137-145) mmol/L Potassium 4.6 (3.5-5.1) mmol/L Chloride 105 (98-107) mmol/L Carbon Dioxide 29 (22-30) mmol/L Anion Gap 12 mmol/L BUN 26 H (7-17) mg/dL Creatinine 1.20 H (0.52-1.04) mg/dL Est GFR (CKD-EPI)AfAm 46 (>60 ml/min/1.73 sqM) Est GFR (CKD-EPI)NonAf 40 (>60 ml/min/1.73 sqM) Glucose 124 H (74-99) mg/dL POC Glucose (mg/dL) (75-99) mg/dL POC Glu Investigator Utility Bill Complaints ID Calcium 9.2 (8.4-10.2) mg/dL Total Bilirubin 0.6 (0.2-1.3) mg/dL AST 27 (14-36) U/L ALT 14 (9-52) U/L Alkaline Phosphatase 105 (38-126) U/L Total Creatine Kinase (30-135) U/L CK-MB (CK-2) (0.0-2.4) ng/mL CK-MB (CK-2) Rel Index Troponin I (0.000-0.034) ng/mL Total Protein 7.0 (6.3-8.2) g/dL Albumin 4.1 (3.5-5.0) g/dL Past Medical History Past Medical History: Cancer, Chest Pain / Angina, GERD/Reflux, Hyperlipidemia, Hypertension, Memory Impairment, Osteoarthritis (OA), Thyroid Disorder, Vascular Disorder Additional Past Medical History / Comment(s): "Borderline diabetes", occasional edema in feet, uterine cancer with hysterectomy, skin cancer on nose/frozen off , beginnings of dementia, hiatal hernia, frequent UTI'S,falls but none recently , arthritis bilateral hips, low back pain., R arm past fx with surgery-limited ROM, subclavian steal syndrome, hypothyroid, urinary incontinence. History of Any Multi-Drug Resistant Organisms: None Reported Past Surgical History: Appendectomy, Back Surgery, Bladder Surgery, Cholecystectomy, Heart Catheterization, Hysterectomy, Joint Replacement, Orthopedic Surgery Additional Past Surgical History / Comment(s): 01/07/18 cardiac cath with mild disease, bilateral cataract removal, spurs removed from back, thyroidectomy/ nodules, bilateral total hip arthroplasties, colonoscopy, bladder suspension surgery, back surgery, right arm fracture with surgery/hardware. Past Anesthesia/Blood Transfusion Reactions: No Reported Reaction Additional Past Anesthesia/Blood Transfusion Reaction / Comment(s): clausterphobia Past Psychological History: No Psychological Hx Reported Smoking Status: Former smoker Past Alcohol Use History: None Reported Past Drug Use History: None Reported - Past Family History Daughter(s) Family Medical History: Deep Vein Thrombosis (DVT) Father Family Medical History: Diabetes Mellitus Mother Family Medical History: Diabetes Mellitus, Hypertension Additional Family Medical History / Comment(s): HEART PROBLEMS Course Vital Signs 02/28/18 02/28/18 02/28/18 22:13 22:35 22:55 Temperature 98.2 F Pulse Rate 61 69 100 Respiratory 18 18 18 Rate Blood Pressure 185/84 205/115 205/134 O2 Sat by Pulse 99 96 98 Oximetry EKG is sinus rhythm with a premature atrial complexes with aberrant conduction medical rate is 65 NM interval is 190 QRS duration is 74 QT/QTc/QTc is 420/436 noticed some PVCs Critical Care Time Total Critical Care Time: 45 Critical Care Time: He was watched closely on arrival blood pressure has been high blood pressure has been not greater than 20 systolic and diastolic blood pressure was greater than [address] abdomen and CT head and brain was done and reviewed myself there was no bleed radiology report rule out any hemorrhage after that I discussed the case with the Dr. Ahmet Shelton recommended rectal aspirin since at this point seems unlikely that she will be able to swallow. There is huge risk of aspiration. I had a detailed discussion with the daughter she made her DO NOT RESUSCITATE patient be admitted under Dr. Mckenna's service Dr. Leo be consult Disposition Clinical Impression: CVA (cerebral vascular accident), Hypertension Disposition: ADMITTED IP TO THIS HOSP Condition: Good Referrals: Sri Sloan MD [Primary Care Provider] - 1-2 days Decision to Admit Reason: Admit from [facility] (she be admitting to selective care)
[2018-02-28] MEDS ORDERED: ASPIRIN 300 MG SUPP RECTAL STA (23:31)
[2018-02-28] MEDS ORDERED: LABETALOL 5 MG/ML VIAL MDV IVP STA (23:32)
[2018-02-28] MEDS ORDERED: NALOXONE 0.4 MG/ML 1 ML VIAL IV PRN (23:54)
[2018-02-28] MEDS ORDERED: ONDANSETRON 4 MG/2 ML VIAL IVP PRN (23:54)
[2018-02-28 23:58] LABS: Partial Thromboplastin Time 21.1 sec (22.0-30.0)
[2018-03-01] MEDS: LABETALOL 5 MG/ML VIAL MDV IVP SCH ×8 (00:47→14:35)
[2018-03-01] MEDS: DEXTROSE 5%-0.9% NACL 1,000 ML IV SCH ×2 (01:40→16:59)
[2018-03-01] MEDS ORDERED: LABETALOL 5 MG/ML VIAL MDV IVP PRN (02:16)
[2018-03-01] MEDS ORDERED: ASPIRIN 300 MG SUPP RECTAL SCH (09:00)
--- NOTE | 2018-03-01 10:49 | US ---
EXAMINATION TYPE: US carotid duplex BILAT DATE OF EXAM: 03/01/2018 COMPARISON: US 2017 CLINICAL HISTORY: 87-year-old female Pain. Stroke, slurred speech, exam done portable in ER. TECHNIQUE: Carotid duplex ultrasound examination. In direct Doppler criteria was utilized. FINDINGS: Wind Tunnel Mechanic notes:Difficult and limited study due to patient movement. EXAM MEASUREMENTS: RIGHT: Peak Systolic Velocity (PSV) cm/sec ----- Right CCA: 91.5 ----- Right ICA: 112.1 ----- Right ECA: 95.6 ICA/CCA ratio: 1.2 RIGHT: End Diastole cm/sec ----- Right CCA: 7.7 ----- Right ICA: 18.7 ----- Right ECA: 0.0 LEFT: Peak Systolic Velocity (PSV) cm/sec ----- Left CCA: 95.3 ----- Left ICA: 75.5 ----- Left ECA: 85.8 ICA/CCA ratio: 0.8 LEFT: End Diastole cm/sec ----- Left CCA: 0.0 ----- Left ICA: 9.5 ----- Left ECA: 0.0 VERTEBRALS (direction of flow): Right Vertebral: Antegrade Left Vertebral: Retrograde Rhythm: Normal Wind Tunnel Mechanic notes: Bilateral intimal thickening, minimal plaque bilateral CCA, bulb and proximal ICA, no elevated velocities, no significant stenosis, retrograde flow seen within left vertebral. IMPRESSION: 1. Retrograde flow seen in the left vertebral artery. Clinically correlate for potential subclavian s teal syndrome. 2. No hemodynamically significant stenosis within either internal carotid artery. Criteria for Assigning % of Stenosis / Diameter reduction (Estimation based on the indirect measurements of the internal carotid artery velocities (ICA PSV). 1. Normal (no stenosis)=ICA PSV < 125 cm/s: ratio < 2.0: ICA EDV<40 cm/s. 2. Less than 50% stenosis=ICA PSV < 125 cm/s: ratio < 2.0: ICA EDV<40 cm/s. 3. 50 to 69% stenosis=ICA PSV of 125 to 230 cm/s: ration 2.0 ? 4.0: ICA EDV 40-100 cm/s. 4. Greater than 70% stenosis to near occlusion= ICA PSV > 230 cm/s: ratio > 4.0: ICA EDV > 100 cm/s. 5. Near occlusion= ICA PSV velocities may be low or undetectable: variable ratio and ICA EDV. 6. Total occlusion=unable to detect flow.
--- NOTE | 2018-03-01 11:20 | CT ---
EXAMINATION TYPE: CT brain wo con DATE OF EXAM: 03/01/2018 COMPARISON: NONE HISTORY: [address] DLP: 943.[address] of the brain was performed. The ventricles, basal cisterns and sulci overlying the cerebral convexities demonstrate mild enlargem ent. There is increasing decreased attenuation anterior left MCA territory felt to reflect acute CVA. No evidence for hemorrhagic transformation or midline shift. There is decreased attenuation about the periventricular white matter and deep white matter of both c erebral hemispheres, compatible with chronic small vessel ischemia. Differential diagnosis does inclu de demyelination. No midline shift. Osseous calvarium is intact. If symptoms persist consider MRI. IMPRESSION: 1. There is increasing decreased attenuation anterior left MCA territory felt to reflect acute CVA. No evidence for hemorrhagic transformation or midline shift.
[2018-03-01] MEDS ORDERED: hydrALAZINE HCL 20 MG/ML 1 ML VIAL IVP PRN (12:19)
--- NOTE | 2018-03-01 12:32 | P.HPIM ---
History of Present Illness H&P Date: 03/01/18 Chief Complaint: Right-sided weakness and confusion This is a 87-year-old female with past medical history noted below who was found on the ground by her neighbor with significant right-sided weakness and confusion. Patient is very confused and unable to provide any medical history. She is not even answering simple yes or no questions. Most of the medical history was obtained by her daughter and legal guardian at bedside. Patient was at her normal state of health yesterday when she was last seen by her neighbor around 4 PM. Patient lives alone and usually is able to take care of her activities of daily living. Usually her daughter check on her every night to make sure that she took her medicine. When she tried to call her around 9:30 no but he picked up the phone. She waited 15 minutes then called again with no response she's been asked the neighbor to go check in on her and the neighbor found her on the ground very confused and unable to move her right side. EMS were called and patient was transferred to the emergency room. By the time she arrived to the emergency room she was outside the window for TPA. Computed tomography scan of the brain initially showed no acute findings. Repeat computed tomography scan this morning showed evidence of decreased attenuation involving the left MCA territory suggesting for acute CVA. There was no evidence for hemorrhagic transformation or midline shift. Patient is currently awake but very confused. She is unable to answer yes or no questions. She is completely flaccid on the right side. She is able to follow simple commands by squeezing my finger on the left. She is also able to wiggle her toes on the left. No response on the right. Review of Systems unable to review other system involvement mental status change Past Medical History Past Medical History: Cancer, Chest Pain / Angina, GERD/Reflux, Hyperlipidemia, Hypertension, Memory Impairment, Osteoarthritis (OA), Thyroid Disorder, Vascular Disorder Additional Past Medical History / Comment(s): "Borderline diabetes", occasional edema in feet, uterine cancer with hysterectomy, skin cancer on nose/frozen off , beginnings of dementia, hiatal hernia, frequent UTI'S,falls but none recently , arthritis bilateral hips, low back pain., R arm past fx with surgery-limited ROM, subclavian steal syndrome, hypothyroid, urinary incontinence. History of Any Multi-Drug Resistant Organisms: None Reported Past Surgical History: Appendectomy, Back Surgery, Bladder Surgery, Cholecystectomy, Heart Catheterization, Hysterectomy, Joint Replacement, Orthopedic Surgery Additional Past Surgical History / Comment(s): 01/07/18 cardiac cath with mild disease, bilateral cataract removal, spurs removed from back, thyroidectomy/ nodules, bilateral total hip arthroplasties, colonoscopy, bladder suspension surgery, back surgery, right arm fracture with surgery/hardware. Past Anesthesia/Blood Transfusion Reactions: No Reported Reaction Additional Past Anesthesia/Blood Transfusion Reaction / Comment(s): clausterphobia Smoking Status: Former smoker - Past Family History Daughter(s) Family Medical History: Deep Vein Thrombosis (DVT) Father Family Medical History: Diabetes Mellitus Mother Family Medical History: Diabetes Mellitus, Hypertension Additional Family Medical History / Comment(s): HEART PROBLEMS Medications and Allergies Home Medications Medication Instructions Recorded Confirmed Type Valsartan [Diovan] 160 mg PO DAILY 10/12/14 02/28/18 History Cranberry Fruit Extract [Cranberry] 1,000 mg PO DAILY 07/16/16 02/28/18 History Gabapentin [Neurontin] 300 mg PO DAILY 12/20/16 02/28/18 History Levothyroxine Sodium [Synthroid] 150 mcg PO DAILY 12/20/16 02/28/18 History Methocarbamol [Robaxin] 1,000 mg PO HS 12/15/17 02/28/18 History Ranitidine HCl [Zantac] 150 mg PO BID 12/15/17 02/28/18 History Aspirin 81 mg PO DAILY #30 chew 12/17/17 02/28/18 Rx Atorvastatin Calcium [Lipitor] 10 mg PO DAILY #30 tab 12/17/17 02/28/18 Rx Metoprolol Tartrate [Lopressor] 25 mg PO BID #60 tab 12/17/17 02/28/18 Rx Donepezil [Aricept] 10 mg PO HS 01/19/18 02/28/18 History Furosemide [Lasix] 40 mg PO DAILY 01/19/18 02/28/18 History Vitamin E 1,000 unit PO DAILY 01/19/18 02/28/18 History Cetirizine HCl [Zyrtec] 10 mg PO DAILY 02/28/18 02/28/18 History Diclofenac Sodium [Voltaren Gel] 2 gram TOPICAL DAILY PRN 02/28/18 02/28/18 History Omeprazole [PriLOSEC] 40 mg PO DAILY 02/28/18 02/28/18 History Wheat Dextrin [Benefiber] 1 packet PO DAILY 02/28/18 02/28/18 History Allergies Allergy/AdvReac Type Severity Reaction Status Date / Time ibuprofen [From Motrin] Allergy Rash/Hives Verified 02/28/18 22:38 lactose AdvReac Unknown Verified 02/28/18 22:38 ADHESIVE (COMPLIANCE LEAD Allergy Unknown Red Skin Uncoded 01/19/18 07:27 STICKERS) with rash. Physical Exam Vitals: Vital Signs Temp Pulse Pulse Resp BP BP Pulse Ox 03/01/18 07:55 97.4 F L 64 18 116/56 98 03/01/18 06:55 97.2 F L 60 18 118/51 100 03/01/18 06:05 62 16 104/63 100 03/01/18 05:28 64 16 138/59 100 03/01/18 04:08 58 L 16 102/56 100 03/01/18 03:48 66 16 102/58 100 03/01/18 03:28 64 16 111/68 100 03/01/18 03:08 66 16 121/77 100 03/01/18 02:48 63 16 111/74 100 03/01/18 02:28 61 16 101/65 100 03/01/18 02:06 63 18 110/64 100 03/01/18 01:40 64 18 145/106 100 03/01/18 01:26 88 18 188/95 03/01/18 01:04 99 20 173/114 98 03/01/18 00:41 184/84 03/01/18 00:30 97 18 214/109 97 02/28/18 23:50 110 H 18 177/104 98 02/28/18 23:34 98 18 197/113 97 02/28/18 22:55 100 18 205/134 98 02/28/18 22:35 69 18 205/115 96 02/28/18 22:13 98.2 F 61 18 185/84 99 Intake and Output 02/28/18 03/01/18 03/01/18 22:59 06:59 14:59 Other: Voiding Method Diaper Incontinent Weight 83.461 kg General: The patient is awake but very confused and unable to answer questions Eye: there is normal conjunctiva bilaterally. Neck: The neck is supple, there is no JVD. Cardiovascular: Normal S1-S2, no S3-S4, no murmurs. Respiratory: Lungs clear to auscultation bilaterally Gastrointestinal: Abdomen is soft, nontender Musculoskeletal: There is no pedal edema. Skin: Skin is warm and dry Results CBC & Chem 7: 02/28/18 22:39 02/28/18 22:45 Labs: Abnormal Lab Results - Last 24 Hours (Table) 02/28/18 02/28/18 02/28/18 Range/Units 22:17 22:39 22:45 WBC 11.4 H (3.8-10.6) k/uL Neutrophils # 8.9 H (1.3-7.7) k/uL APTT (22.0-30.0) sec Sodium 146 H (137-145) mmol/L BUN 26 H (7-17) mg/dL Creatinine 1.20 H (0.52-1.04) mg/dL Glucose 124 H (74-99) mg/dL POC Glucose (mg/dL) 121 H (75-99) mg/dL 02/28/18 Range/Units 22:45 WBC (3.8-10.6) k/uL Neutrophils # (1.3-7.7) k/uL APTT 21.1 L (22.0-30.0) sec Sodium (137-145) mmol/L BUN (7-17) mg/dL Creatinine (0.52-1.04) mg/dL Glucose (74-99) mg/dL POC Glucose (mg/dL) (75-99) mg/dL Thrombosis Risk Factor Assmnt - Choose All That Apply Any of the Below Risk Factors Present?: Yes Each Factor Represents 1 point: Obesity (BMI >25) Other Risk Factors: Yes Each Risk Factor Represents 2 Points: Malignancy Each Risk Factor Represents 3 Points: Age 75 years or older, Family history of DVT/PE Other congenital or acquired thrombophilia - If yes, enter type in comment: No Thrombosis Risk Factor Assessment Total Risk Factor Score: 9 Thrombosis Risk Factor Assessment Level: High Risk Assessment and Plan Assessment: 1. Acute stroke involving left MCA territory. We will continue rectal aspirin for now as patient is unable to swallow pills. MRI/MRA of the brain and neck ordered. Neurology consultation requested. Her onto Doppler showed no hemodynamically significant stenosis. Would obtain echocardiogram of the heart. PT/OT/speech pathology consultation. Continue supportive care and IV fluids. 2. Essential hypertension, blood pressure within acceptable range 3. Nonobstructive coronary artery disease with recent left heart catheterization in December of this year 4. Hypothyroidism 5. CODE STATUS: Patient is DO NOT RESUSCITATE/DO NOT INTUBATE per my discussion with her daughter and legal guardian today.
[2018-03-01] MEDS: ASPIRIN 300 MG SUPP RECTAL SCH (12:42)
[2018-03-01] MEDS: HEPARIN SODIUM,PORCINE 5,000 UNIT/ML 1 ML VIAL SQ SCH ×2 (13:23→20:12)
--- NOTE | 2018-03-01 15:32 | MR ---
EXAMINATION TYPE: MR brain wo/w mraneck wo/wcon DATE OF EXAM: 03/01/2018 3:19 PM COMPARISON: NONE HISTORY: Acute stroke CONTRAST: Gadavist 7.5, Multiplanar and multispin-echo imaging of the brain was performed . Pre and post contrast enhanced i mages are obtained. The ventricles, basal cisterns and sulci overlying the cerebral convexities are moderately enlarged. There is evidence of moderate periventricular white matter ischemic demyelination. Remote deep white matter insults are also noted. Diffusion-weighted imaging demonstrates moderate sized area of increased signal involving the left MC A territory compatible with acute CVA. There is evidence of cytotoxic edema. Mild mass effect upon th e left lateral ventricle without evidence for midline shift at this time. No evidence for hemorrhagic transformation. There is no evidence for midline shift or mass effect. Acute intracranial hemorrhage or extra-axial collection is not evident. No enhancing lesions are seen. Mild mucosal thickening right maxillary sinus. Mastoid air cells well-aerated. IMPRESSION: 1 moderate sized area of acute CVA involving the left MCA territory. No evidence for hemorrhagic grimaldo sformation or midline shift. 2. Age-related atrophic and chronic small vessel ischemic change. EXAMINATION TYPE: MR brain wo/w mraneck wo/wcon DATE OF EXAM: 03/01/2018 3:19 PM COMPARISON: NONE HISTORY: Acute stroke Three-dimensional [id number] cervical carotid MRA was performed with multiple intensity projectio n images submitted and source data reviewed at the workstation. Right carotid system: There is mild plaque seen about the common carotid artery. Mild plaque is also seen at the origin and proximal aspect of the right internal carotid artery. No hemodynamically si gnificant stenosis is appreciated. Right external carotid artery right vertebral artery are patent. Left carotid system: Mild plaque involving the left common carotid artery. Mild plaque origin left IC A. Stenosis is estimated at approximately 50%. External carotid artery and the left vertebral arter y are patent. IMPRESSION: 1. Mild plaque origin left ICA. Stenosis is estimated at approximately 50%. 2. No hemodynamically significant stenosis right carotid system.
[2018-03-01] MEDS ORDERED: LORazepam 2 MG/ML INJ IV PRN (19:19)
[2018-03-01 22:00] LABS: Glucose,Whole Blood 127 mg/dL (75-99)
[2018-03-01] MEDS ORDERED: levETIRAcetam IV 1,000 MG in SALINE 1 100ML.BAG IVPB STA (22:07)
[2018-03-01] MEDS ORDERED: DRY MOUTH SPRAY 44.3 SPRAY/44.3 ML SPRAY MUCOUS MEM PRN (23:52)
[2018-03-01] MEDS ORDERED: SCOPOLAMINE 1.5MG/72HR PATCH TRANSDERM PRN (23:52)
[2018-03-01] MEDS ORDERED: HALOPERIDOL LACTATE 5 MG/ML 1 ML VIAL IM PRN (23:52)
[2018-03-01] MEDS ORDERED: ARTIFICIAL TEARS-HYPROMELLOSE DROPS 15 ML BTL BOTH EYES PRN (23:52)
[2018-03-01] MEDS ORDERED: HALOPERIDOL 0.5 MG TAB PO PRN (23:52)
--- NOTE | 2018-03-01 23:58 | CT ---
EXAMINATION TYPE: CT brain wo con DATE OF EXAM: 03/01/2018 COMPARISON: 03/01/2018 at 11:00 AM HISTORY: Neuro deficits. CT DLP: 798.1 mGycm Automated exposure control for dose reduction was used. FINDINGS: There is some mucosal thickening in the right maxillary sinus. There is cerebral cortical atrophy. Th ere is a large area of hypodensity involving the left temporal lobe. There is no midline shift. There is no sign of intracranial hemorrhage. IMPRESSION: THERE IS EVIDENCE OF ACUTE LEFT MIDDLE CEREBRAL ARTERY INFARCT WITH HYPODENSITY IN A LARGE AREA OF TH E LEFT TEMPORAL LOBE THAT IS MORE THAN NOTICEABLE AND SHOWS MORE EDEMA COMPARED TO EXAM EARLIER TODAY . NO HEMORRHAGE. NO SIGNIFICANT MASS EFFECT.
[2018-03-02 05:38] VITALS: BP 133/80; PULSE 67; RESP 14; TEMP 98.3
[2018-03-02 06:29] LABS: Basophils % (A) 0 %; Eosinophils % (A) 0 %; HCT 37.6 % (34.0-46.0); HGB 11.7 gm/dL (11.4-16.0); Lymphocytes # (A) 1.5 k/uL (1.0-4.8); Lymphocytes % (A) 14 %; MCH 27.7 pg (25.0-35.0); MCV 89.2 fL (80.0-100.0); Mean Platelet Volume 6.7; Monocytes # (A) 0.7 k/uL (0-1.0); Monocytes % (A) 6 %; Neutrophils # (A) 8.4 k/uL (1.3-7.7); Neutrophils % (A) 77 %; Platelet Count 197 k/uL (150-450); RBC 4.21 m/uL (3.80-5.40); RDW 12.6 % (11.5-15.5); WBC 10.8 k/uL (3.8-10.6)
[2018-03-02] MEDS: SODIUM CHLORIDE 0.9% 1,000 ML IV SCH ×2 (06:34→19:04)
[2018-03-02 06:50] LABS: Albumin 3.2 g/dL (3.5-5.0); Calcium 8.6 mg/dL (8.4-10.2); Potassium 4.1 mmol/L (3.5-5.1); Total Bilirubin 0.9 mg/dL (0.2-1.3); Total Protein 5.8 g/dL (6.3-8.2)
[2018-03-02 07:37] LABS: T4, Free (Free Thyroxine) 1.78 ng/dL (0.78-2.19)
--- NOTE | 2018-03-02 08:55 | CONS ---
CONSULTATION DATE OF CONSULTATION: 03/01/2018. CHIEF COMPLAINT: Stroke. HISTORY OF PRESENT ILLNESS: The patient is an 87-year-old female who is being evaluated today on 03/01/2018 by the neurology service per the request of Dr. Mckenna for a stroke. The patient was brought into [facility] Emergency Room after she was found down on the ground by her neighbor and she was noticed to have significant weakness on the right side and confusion. In the emergency room, she was noticed to be having right sided flaccid paralysis and aphasia. A stat CT scan of the brain was done which showed generalized atrophy. No acute intracranial abnormalities were seen on the initial CT scan of the brain. The patient was not within the window of tPA treatment as it was unclear when the symptoms began. She was started on rectal aspirin and admitted for further workup and management. I did order a repeat CT scan of the brain which was done and it did show hypoattenuation involving the anterior portion of the left middle cerebral artery. An MRI of the brain was done which showed a large acute stroke involving the left middle cerebral artery. Cytotoxic edema was noticed. Her carotid Doppler showed no hemodynamically significant stenosis anteriorly. It was noticed that there is retrograde flow involving the left vertebral artery. At the time of my evaluation, the patient is lying in her bed and appears to be slightly restless. The family states that she was more restless earlier today and this waxes and wanes throughout the day. She continues to have paralysis on the right side and has been nonverbal except for occasional sounds. The patient has also been unable to swallow. Speech therapy has been consulted. PAST MEDICAL HISTORY: Cancer, angina, gastroesophageal reflux disease, dyslipidemia, hypertension, hypothyroidism, arthritis, borderline diabetes. history of skin cancer and uterine cancer, history of hysterectomy, history of appendectomy, spine surgery, bladder surgery, cholecystectomy, cataract surgery, orthopedic surgeries. FAMILY HISTORY: Positive for deep venous thrombosis, diabetes, hypertension. SOCIAL HISTORY: There is no history of any tobacco, alcohol or drug use. HOME MEDICATIONS: Reviewed in the chart. ALLERGIES: MOTRIN, LACTOSE, ADHESIVE TAPE. REVIEW OF SYSTEM: Unable to obtain due to aphasia. PHYSICAL EXAM: Vital signs show a temperature of 97, pulse 65, respiration 20, blood pressure 157/64. GENERAL APPEARANCE: The patient is an elderly female, who appears to be in no acute distress. HEENT: Normocephalic, atraumatic. Right facial drooping is seen. NECK: Supple with no masses felt. CARDIOVASCULAR: Regular rate and rhythm. ABDOMEN: Nontender, nondistended. Extremities showed trace edema with no clubbing seen. NEUROLOGICAL EXAM: The patient is drowsy but is arousable. She does follow simple commands. Language testing showed affected fluency, naming, and repetition. Comprehension is intact. Strength is 0/5 on the right and 4/5 on the left. Sensory examination was limited due to her aphasia. Cranial nerve testing showed right facial drooping. IMPRESSION: 1. Acute ischemic stroke, left middle cerebral artery distribution. 2. Right hemiplegia. 3. Expressive aphasia. 4. Dysphagia. RECOMMENDATION: The patient does appear to have suffered a large ischemic stroke involving the left middle cerebral artery distribution. She continues to have right hemiplegia and expressive aphasia and dysphagia. She will continue on aspirin 300 mg rectally. The patient is being followed by speech therapy. Given the extent of the stroke, the severity of the symptoms, and the patient's advanced age, the chance of a significant neurological improvement is quite low. I had a lengthy discussion with the patient's family who were at bedside at the time of my evaluation. I did inform them that a decision needs to be made whether a PEG tube will be placed. Continue IV hydration as tolerated. Continue DVT prophylaxis and GI prophylaxis. Prognosis is guarded. I will continue to follow with you. Further recommendations to follow. Thank you for allowing me to participate in the care of your patient. If you have any questions, please feel free to contact me. MMCHUCK / IJN: [id number] /
[2018-03-02] MEDS ORDERED: levETIRAcetam IV 750 MG in SODIUM CHLORIDE 0.9% 100 ML IVPB SCH (09:00)
[2018-03-02] MEDS: MORPHINE SULFATE 4 MG/ML SYRINGE IV PRN ×2 (09:18→17:05)
[2018-03-02] MEDS: ASPIRIN 300 MG SUPP RECTAL SCH (12:33)
[2018-03-02] MEDS: HEPARIN SODIUM,PORCINE 5,000 UNIT/ML 1 ML VIAL SQ SCH (12:33)
--- NOTE | 2018-03-02 12:55 | P.DS ---
Providers Date of admission: 02/28/18 23:54 Expected date of discharge: 03/02/18 Attending physician: Dave Mckenna Consults: 02/28/18 23:54 Consult Physician Stat Consulting Provider: Millie Leo Consult Reason/Comments: CVA Do you want consulting provider notified?: Yes Primary care physician: Sri Sloan [facility] Course: 1. Acute stroke involving left MCA territory. Patient was seen and evaluated by neurology. Her clinical condition does not improve. Repeat computed tomography scan of the brain showed evidence of vasogenic edema. Patient was started on Keppra for seizure prophylaxis. Patient's family eventually requested for her to be enrolled in hospice. They said that they do not want any IV medication treatment or repeat imaging or CT scans of the her brain. He just wanted to be comfortable. Hospice would be consult and patient will be discharged to the hospice house. We will continue comfort measures only. 2. Essential hypertension, blood pressure within acceptable range 3. Nonobstructive coronary artery disease with recent left heart catheterization in December of this year 4. Hypothyroidism 5. CODE STATUS: Patient is DO NOT RESUSCITATE/DO NOT INTUBATE per my discussion with her daughter and legal guardian Patient Condition at Discharge: Good Plan - Discharge Summary Discharge Rx Participant: No New Discharge Prescriptions: New LORazepam ORAL CONC [Ativan Intensol] 2 mg PO BID #30 ml Morphine Sulfate [Morphine Sulfate Oral Solution] 5 mg PO Q3HR PRN #5 ml PRN Reason: Pain Discontinued Valsartan [Diovan] 160 mg PO DAILY Cranberry Fruit Extract [Cranberry] 1,000 mg PO DAILY Levothyroxine Sodium [Synthroid] 150 mcg PO DAILY Gabapentin [Neurontin] 300 mg PO DAILY Ranitidine HCl [Zantac] 150 mg PO BID Methocarbamol [Robaxin] 1,000 mg PO HS Aspirin 81 mg PO DAILY #30 chew Atorvastatin Calcium [Lipitor] 10 mg PO DAILY #30 tab Metoprolol Tartrate [Lopressor] 25 mg PO BID #60 tab Donepezil [Aricept] 10 mg PO HS Furosemide [Lasix] 40 mg PO DAILY Vitamin E 1,000 unit PO DAILY Omeprazole [PriLOSEC] 40 mg PO DAILY Diclofenac Sodium [Voltaren Gel] 2 gram TOPICAL DAILY PRN PRN Reason: Pain Cetirizine HCl [Zyrtec] 10 mg PO DAILY Wheat Dextrin [Benefiber] 1 packet PO DAILY Discharge Medication List LORazepam ORAL CONC [Ativan Intensol] 2 mg PO BID #30 ml 03/02/18 [Rx] Morphine Sulfate [Morphine Sulfate Oral Solution] 5 mg PO Q3HR PRN #5 ml [Rx] Discharge Disposition: HOME WITH HOSPICE
[2018-03-02 13:16] LABS: Hemoglobin A1C 5.5 % (4.0-6.0)
--- NOTE | 2018-03-02 15:36 | ECHOF ---
Referral Reason:Acute stroke MEASUREMENTS -------- HEIGHT: 165.1 cm WEIGHT: 83.5 kg BP: 116/56 RVIDd: 3.0 cm (< 3.3) IVSd: 1.1 cm (0.6 - 1.1) LVIDd: 4.6 cm (3.9 - 5.3) LVPWd: 1.0 cm (0.6 - 1.1) IVSs: 1.5 cm LVIDs: 3.1 cm LVPWs: 1.5 cm LA Diam: 3.4 cm (2.7 - 3.8) LAESV Index (A-L): 23.13 ml/m Ao Diam: 2.9 cm (2.0 - 3.7) AV Cusp: 1.8 cm (1.5 - 2.6) MV EXCURSION: 10.325 mm (> 18.000) MV EF SLOPE: 50 mm/s (70 - 150) EPSS: 0.3 cm MV E Tirso: 1.13 m/s MV DecT: 197 ms MV A Tirso: 0.79 m/s MV E/A Ratio: 1.43 RAP: 5.00 mmHg RVSP: 35.07 mmHg FINDINGS -------- Sinus rhythm. This was a technically adequate study. The left ventricular size is normal. There is borderline concentric left ventricular hypertrophy. Overall left ventricular systolic function is normal with, an EF between 55 - 60 %. The right ventricle is normal in size. Normal LA size by volume 22+/-6 ml/m2. The right atrium is normal in size. The aortic valve was not well visualized. The mitral valve leaflets are mildly thickened. Mild mitral annular calcification present. There is trace mitral regurgitation. Mild tricuspid regurgitation present. There is mild pulmonary hypertension. The right ventricular systolic pressure, as measured by Doppler, is 35.07mmHg. The pulmonic valve was not well visualized. The aortic root size is normal. Normal inferior vena cava with normal inspiratory collapse consistent with estimated right atrial pre ssure of 5 mmHg. The inferior vena cava is mildly dilated. There is no pericardial effusion. CONCLUSIONS -------- 1. Sinus rhythm. 2. This was a technically adequate study. 3. The left ventricular size is normal. 4. There is borderline concentric left ventricular hypertrophy. 5. Overall left ventricular systolic function is normal with, an EF between 55 - 60 %. 6. The right ventricle is normal in size. 7. Normal LA size by volume 22+/-6 ml/m2. 8. The right atrium is normal in size. 9. The aortic valve was not well visualized. 10. The mitral valve leaflets are mildly thickened. 11. Mild mitral annular calcification present. 12. There is trace mitral regurgitation. 13. Mild tricuspid regurgitation present. 14. There is mild pulmonary hypertension. 15. The right ventricular systolic pressure, as measured by Doppler, is 35.07mmHg. 16. The pulmonic valve was not well visualized. 17. The aortic root size is normal. 18. Normal inferior vena cava with normal inspiratory collapse consistent with estimated right atrial pressure of 5 mmHg. 19. The inferior vena cava is mildly dilated. 20. There is no pericardial effusion. [employer]: Madeleine Low RDCS
== END 2018-03-02 20:11 | disposition hospice, inpatient (51) | DRG 64 ==
LOC: EC 22:10 → 6SEL 23:54 → 5ONC 03-02 06:56
PROVIDERS: ADMIT Internal Medicine; ATTEND Internal Medicine
DX: I63.512 Cerebral infarction due to unspecified occlusion or stenosis of left middle cerebral artery (principal); G93.6 Cerebral edema; R40.2222 Coma scale, best verbal response, incomprehensible words, at arrival to emergency department; G81.01 Flaccid hemiplegia affecting right dominant side; G45.8 Other transient cerebral ischemic attacks and related syndromes; R47.01 Aphasia; R13.10 Dysphagia, unspecified; F03.90 Unspecified dementia, unspecified severity, without behavioral disturbance, psychotic disturbance, mood disturbance, and anxiety; Z66 Do not resuscitate; Z51.5 Encounter for palliative care; I10 Essential (primary) hypertension; R29.722 NIHSS score 22; R40.2132 Coma scale, eyes open, to sound, at arrival to emergency department; R40.2362 Coma scale, best motor response, obeys commands, at arrival to emergency department; K21.9 Gastro-esophageal reflux disease without esophagitis; I49.3 Ventricular premature depolarization; I49.1 Atrial premature depolarization; E78.5 Hyperlipidemia, unspecified; M19.91 Primary osteoarthritis, unspecified site; K44.9 Diaphragmatic hernia without obstruction or gangrene; R73.03 Prediabetes; R32 Unspecified urinary incontinence; F40.240 Claustrophobia; E89.0 Postprocedural hypothyroidism; M54.5 Low back pain; I25.10 Atherosclerotic heart disease of native coronary artery without angina pectoris; Z79.82 Long term (current) use of aspirin; Z79.890 Hormone replacement therapy; Z79.899 Other long term (current) drug therapy; Z85.42 Personal history of malignant neoplasm of other parts of uterus; Z90.710 Acquired absence of both cervix and uterus; Z90.49 Acquired absence of other specified parts of digestive tract; Z85.828 Personal history of other malignant neoplasm of skin; Z87.440 Personal history of urinary (tract) infections; Z87.81 Personal history of (healed) traumatic fracture; Z96.643 Presence of artificial hip joint, bilateral; Z87.891 Personal history of nicotine dependence; Z98.42 Cataract extraction status, left eye; Z98.41 Cataract extraction status, right eye; Z91.011 Allergy to milk products; Z88.8 Allergy status to other drugs, medicaments and biological substances; Z91.048 Other nonmedicinal substance allergy status; Z83.2 Family history of diseases of the blood and blood-forming organs and certain disorders involving the immune mechanism; Z83.3 Family history of diabetes mellitus; Z82.49 Family history of ischemic heart disease and other diseases of the circulatory system
CPT/HCPCS: 36415; 51702; 70450; 70549; 70553; 71046; 80053; 80061; 82550; 82553; 83036; 84439; 84443; 84484; 85025; 85610; 85730; 93005; 93306; 93880; 96361; 96372; 96374; 99291

== ENCOUNTER 2018-03-02 20:22 | Inpatient (IN) | payer OTHER ==
[2018-03-02] MEDS ORDERED: LORazepam 2 MG/ML INJ IV PRN (20:48)
[2018-03-02] MEDS ORDERED: ACETAMINOPHEN SUPPOSITORY 650 MG SUPP RECTAL PRN (20:49)
[2018-03-02] MEDS: MORPHINE SULFATE 4 MG/ML SYRINGE IVP PRN (21:20)
[2018-03-02] MEDS: SODIUM CHLORIDE 0.9% 1,000 ML IV SCH (21:24)
[2018-03-03 00:51] VITALS: BMI 33.0
[2018-03-03 01:15] VITALS: PULSE 74; RESP 10
[2018-03-03] MEDS ORDERED: ATROPINE OPHTH SOLN 1% 5ML BTL SUBLINGUAL PRN (01:39)
[2018-03-03] MEDS: MORPHINE SULFATE 4 MG/ML SYRINGE IVP PRN ×2 (07:22→17:42)
--- NOTE | 2018-03-03 11:43 | P.HPIM ---
History of Present Illness H&P Date: 03/03/18 Chief Complaint: Acute stroke This is a 87-year-old female with past medical history noted below who presented to the hospital after she was found on the ground at home with significant right-sided weakness/hemiplegia. Patient was evaluated and was found to have a large stroke. Patient's family did not want to pursue any aggressive measures or further treatment or diagnostic tests. They want her to be comfortable only. There was seen by hospice and eventuallywas enrolled in hospice. She is awaiting placement to the hospice house. She appears comfortable today when I saw her. She is opening her eyes but not following any commands. No evidence of discomfort and pain. Family are not even interested in giving her any IV fluids. Review of Systems Unable to review other systems given her current mental status Past Medical History Past Medical History: Cancer, Chest Pain / Angina, GERD/Reflux, Hyperlipidemia, Hypertension, Memory Impairment, Osteoarthritis (OA), Thyroid Disorder, Vascular Disorder Additional Past Medical History / Comment(s): "Borderline diabetes", occasional edema in feet, uterine cancer with hysterectomy, skin cancer on nose/frozen off , beginnings of dementia, hiatal hernia, frequent UTI'S,falls but none recently , arthritis bilateral hips, low back pain., R arm past fx with surgery-limited ROM, subclavian steal syndrome, hypothyroid, urinary incontinence. History of Any Multi-Drug Resistant Organisms: None Reported Past Surgical History: Appendectomy, Back Surgery, Bladder Surgery, Cholecystectomy, Heart Catheterization, Hysterectomy, Joint Replacement, Orthopedic Surgery Additional Past Surgical History / Comment(s): 01/07/18 cardiac cath with mild disease, bilateral cataract removal, spurs removed from back, thyroidectomy/ nodules, bilateral total hip arthroplasties, colonoscopy, bladder suspension surgery, back surgery, right arm fracture with surgery/hardware. Past Anesthesia/Blood Transfusion Reactions: No Reported Reaction Additional Past Anesthesia/Blood Transfusion Reaction / Comment(s): clausterphobia Past Psychological History: No Psychological Hx Reported Additional Psychological History / Comment(s): Pt alone at home. She no longer drives, her daughter takes her places. He josé organizes her RX. She receives meals on wheels. Smoking Status: Former smoker Past Alcohol Use History: None Reported Additional Past Alcohol Use History / Comment(s): started at age 16- 1 pack every 2 days,quit 1978 Past Drug Use History: None Reported - Past Family History Daughter(s) Family Medical History: Deep Vein Thrombosis (DVT) Father Family Medical History: Diabetes Mellitus Mother Family Medical History: Diabetes Mellitus, Hypertension Additional Family Medical History / Comment(s): HEART PROBLEMS Medications and Allergies Home Medications Medication Instructions Recorded Confirmed Type LORazepam ORAL CONC [Ativan 2 mg PO BID #30 ml 03/02/18 03/02/18 Rx Intensol] Morphine Sulfate [Morphine Sulfate 5 mg PO Q3HR PRN #5 ml 03/02/18 03/02/18 Rx Oral Solution] Allergies Allergy/AdvReac Type Severity Reaction Status Date / Time ibuprofen [From Motrin] Allergy Rash/Hives Verified 03/02/18 22:16 lactose AdvReac Unknown Verified 03/02/18 22:16 ADHESIVE ([employer] Allergy Unknown Red Skin Uncoded 01/19/18 07:27 STICKERS) with rash. Physical Exam Vitals: Vital Signs Pulse Resp Pulse Ox 03/03/18 01:14 74 10 L 98 Intake and Output 03/02/18 03/03/18 03/03/18 22:59 06:59 14:59 Intake Total 20 Output Total 100 Balance 20 -100 Intake: IV 20 Sodium Chloride 0.9% 1, 20 000 ml @ 10 mls/hr IV . Q24H [facility] Rx#:[id number] Output: Urine 100 Uretheral ([place]) 100 Other: Voiding Method Indwelling Catheter Indwelling Catheter Weight 90 kg General: The patient is awake she is not following any simple commands. She is not answering yes or no questions. Eye: there is normal conjunctiva bilaterally. Cardiovascular: Normal S1-S2, no S3-S4, no murmurs. Respiratory: Lungs clear to auscultation bilaterally Gastrointestinal: Abdomen is soft, nontender Musculoskeletal: There is +1 pedal edema. Neurological:. Right side of the body is completely flaccid Skin: Skin is warm and dry Thrombosis Risk Factor Assmnt - Choose All That Apply Any of the Below Risk Factors Present?: Yes Each Factor Represents 1 point: Obesity (BMI >25) Other Risk Factors: Yes Each Risk Factor Represents 2 Points: Patient confined to bed, Malignancy Each Risk Factor Represents 3 Points: Age 75 years or older Other congenital or acquired thrombophilia - If yes, enter type in comment: No Each Risk Factor Represents 5 Points: Stroke (< 1 month) Thrombosis Risk Factor Assessment Total Risk Factor Score: 13 Thrombosis Risk Factor Assessment Level: High Risk Assessment and Plan Assessment: 1. Acute stroke involving left MCA territory. Patient was seen and evaluated by neurology. Repeat computed tomography scan of the brain showed evidence of vasogenic edema. Patient was started on Keppra for seizure prophylaxis. Patient's family eventually requested for her to be enrolled in hospice. They said that they do not want any IV medication treatment or repeat imaging or CT scans of the her brain. They just wanted to be comfortable. 2. Essential hypertension, blood pressure within acceptable range 3. Nonobstructive coronary artery disease with recent left heart catheterization in December of this year 4. Hypothyroidism 5. CODE STATUS: Patient is DO NOT RESUSCITATE/DO NOT INTUBATE per my discussion with her daughter and legal guardian Patient is currently enrolled in hospice care. Awaiting transfer to the hospice house.
[2018-03-03] MEDS ORDERED: SCOPOLAMINE 1.5MG/72HR PATCH TRANSDERM SCH (12:00)
[2018-03-04] MEDS: SODIUM CHLORIDE 0.9% 1,000 ML IV SCH (01:22)
[2018-03-04] MEDS: MORPHINE SULFATE 4 MG/ML SYRINGE IVP PRN ×3 (01:28→12:22)
[2018-03-04 05:54] VITALS: TEMP 99.9
== END 2018-03-04 13:10 | disposition hospice, inpatient (51) | DRG 64 ==
LOC: 5ONC 20:22
PROVIDERS: ADMIT Internal Medicine; ATTEND Internal Medicine
DX: I63.512 Cerebral infarction due to unspecified occlusion or stenosis of left middle cerebral artery (principal); G93.6 Cerebral edema; G81.90 Hemiplegia, unspecified affecting unspecified side; E78.5 Hyperlipidemia, unspecified; E89.0 Postprocedural hypothyroidism; F03.90 Unspecified dementia, unspecified severity, without behavioral disturbance, psychotic disturbance, mood disturbance, and anxiety; I10 Essential (primary) hypertension; I25.10 Atherosclerotic heart disease of native coronary artery without angina pectoris; K21.9 Gastro-esophageal reflux disease without esophagitis; Z51.5 Encounter for palliative care; Z66 Do not resuscitate; Z82.49 Family history of ischemic heart disease and other diseases of the circulatory system; Z83.3 Family history of diabetes mellitus; Z85.42 Personal history of malignant neoplasm of other parts of uterus; Z85.828 Personal history of other malignant neoplasm of skin; Z87.440 Personal history of urinary (tract) infections; Z87.891 Personal history of nicotine dependence; Z90.710 Acquired absence of both cervix and uterus; Z96.643 Presence of artificial hip joint, bilateral; Z98.42 Cataract extraction status, left eye; Z98.41 Cataract extraction status, right eye; Z79.1 Long term (current) use of non-steroidal anti-inflammatories (NSAID); Z79.891 Long term (current) use of opiate analgesic; Z79.899 Other long term (current) drug therapy